=== PATIENT | male | born 1990 | race Caucasian/White ===

== ENCOUNTER 2024-03-12 06:37 | Observation (INO) | payer OTHER ==
[2024-03-12] MEDS ORDERED: KETOROLAC 15 MG/ML 1 ML VIAL IVP STA (06:44)
[2024-03-12] MEDS: HYDROmorphone 1 MG/ML 1 ML SYRINGE IVP STA (06:57)
[2024-03-12] MEDS: SODIUM CHLORIDE 0.9% 1,000 ML IV STA ×2 (07:01→07:02)
--- NOTE | 2024-03-12 07:07 | ED ---
Abdominal Pain HPI - General Chief Complaint: Abdominal Pain Stated Complaint: abd pain Time Seen by Provider: 03/12/24 06:42 Source: patient, RN notes reviewed Mode of arrival: EMS Limitations: no limitations - History of Present Illness Initial Comments: This is a 33-year-old male who presents to the emergency department as a transfer from [facility] for urology consult regarding bilateral obstructing ureteral calculi. Patient has a substantial history of kidney stones. States that he has had hematuria for the last week and this morning woke up with severe left flank pain, prompting him to go to the emergency department. They found him to have an VALENTINA, bilateral obstructing calculi, as well as a UTI. He was given 1 g of ceftriaxone in the emergency department and pain medication prior to transfer. MD Complaint: abdominal pain, flank pain - Related Data Home Medications Medication Instructions Recorded Confirmed Dextroamphetamine/Amphetamine 30 mg PO DAILY 03/12/24 03/12/24 [Dextroamphetamine/Amphetamine ER 30 mg Cap] Allergies Allergy/AdvReac Type Severity Reaction Status Date / Time codeine AdvReac Itching Verified 03/12/24 08:36 Review of Systems ROS Statement: Those systems with pertinent positive or pertinent negative responses have been documented in the HPI. ROS Other: All systems not noted in ROS Statement are negative. Past Medical History Additional Past Medical History / Comment(s): kidney stones Past Surgical History: No Surgical Hx Reported Past Psychological History: No Psychological Hx Reported Smoking Status: Current every day smoker Past Alcohol Use History: None Reported Past Drug Use History: None Reported - Past Family History Father Additional Family Medical History / Comment(s): kidney stones General Exam Limitations: no limitations General appearance: alert, in no apparent distress Head exam: Present: atraumatic, normocephalic, normal inspection Respiratory exam: Present: normal lung sounds bilaterally. Absent: respiratory distress, wheezes, rales, rhonchi, stridor Cardiovascular Exam: Present: regular rate, normal rhythm, normal heart sounds. Absent: systolic murmur, diastolic murmur, rubs, gallop, clicks GI/Abdominal exam: Present: soft, tenderness (LLQ), normal bowel sounds. Absent: distended Back exam: Present: CVA tenderness (R), CVA tenderness (L) Neurological exam: Present: alert, oriented X3, CN II-XII intact Psychiatric exam: Present: normal affect, normal mood Skin exam: Present: warm, dry, intact, normal color. Absent: rash Course Vital Signs 03/12/24 03/12/24 06:41 07:51 Temperature 97.8 F 98.3 F Pulse Rate 72 69 Respiratory 20 18 Rate Blood Pressure 127/83 129/84 O2 Sat by Pulse 97 98 Oximetry Medical Decision Making - Medical Decision Making This is a 33-year-old male who presents to the emergency department for bilateral ureteral calculi Was pt. sent in by a medical professional or institution? @ -Transfer from [facility] Did you speak to anyone other than the patient for history? @ -No Did you review nursing and triage notes? @ -Yes, and I agree, it is accurate with regards to the patient's symptoms. Were old charts reviewed? @ -Records sent with the patient from [facility]. CT scan notes a calculi in the left distal ureter with mild to moderate hydronephrosis and a calculi in the right proximal ureter with severe hydronephrosis. WBC: 15.3 Creatinine: 2.5 eGFR: 34 UA: positive nitrites Differential Diagnosis? @ -Differential Flank Pain: UTI, pyelonephritis, kidney stone, musculoskeletal, pancreatitis, cholecystitis, this is not meant to be an all-inclusive list. EKG interpreted by me (3pts min.)? @ -Not obtained X-rays interpreted by me (1pt min.)? @ -Not obtained CT interpreted by me (1pt min.)? @ -Not obtained U/S interpreted by me (1pt. min.)? @ -Not obtained What testing was considered but not performed? (CT, X-rays, U/S, labs)? Why? @ -None What meds were considered but not given? Why? @ -None Did you discuss the management of the patient with other professionals? @ -Yes, Dr. Shook, who advised keeping the patient NPO with potential for intervention later today. Lorena Renteria accepts the patient for admission to medicine. Did you reconcile home meds? @ -No Was smoking cessation discussed for >3mins.? @ -I discussed smoking cessation for greater than 3 minutes. The risk of smoking were discussed with the patient including but not limited to risks of cancer, stroke, coronary artery disease and COPD. Also discussed with patient were multiple methods of quitting smoking. Lastly we discussed the financial cost of smoking. Was critical care preformed (if so, how long)? @ -No Were there social determinants of health that impacted care today? How? (Homelessness, low income, unemployed, alcoholism, drug addiction, transportation, low edu. Level, literacy, decrease access to med. care, [facility], rehab)? @ -No Was there de-escalation of care discussed even if they declined? (Discuss DNR or withdrawal of care, Hospice)? @ -No What co-morbidities impacted this encounter? (DM, HTN, Smoking, COPD, CAD, Cancer, CVA, Hep., AIDS, mental health diagnosis, sleep apnea, morbid obesity)? @ -Kidney stones, smoking Was patient admitted / discharged? @ -Admitted. Patient transferred to our facility from [facility] for bilateral obstructing ureteral calculi with an VALENTINA and associated U TI. He was given 1 g of ceftriaxone prior to transfer. He was given an additional 1 g of ceftriaxone in our emergency department. Case discussed with urology who requested keeping the patient NPO for possible intervention later today. Repeat lab work obtained here as well demonstrating persistent but mild improvement of both leukocytosis and VALENTINA. Urinalysis still has positive nitrites. Patient admitted to medicine for bilateral obstructing calculi, VALENTINA, and UTI. Urology listed as consult. Undiagnosed new problem with uncertain prognosis? @ -None Drug Therapy requiring intensive monitoring for toxicity (Heparin, Nitro, Insulin, Cardizem)? @ -None Were any procedures done? @ -None Diagnosis/symptom? @ -Bilateral obstructing ureteral calculi, hydronephrosis, UTI, VALENTINA Acute, or Chronic, or Acute on Chronic? @ -Acute Uncomplicated (without systemic symptoms) or Complicated (systemic symptoms)? @ -Complicated Side effects of treatment? @ -None Exacerbation, Progression, or Severe Exacerbation] @ -Not applicable Poses a threat to life or bodily function? @ -Yes This case was discussed in detail with the attending ED physician, Dr. Kahn. Presentation, findings, and treatment plan discussed in detail as well. - Lab Data Result diagrams: 03/12/24 07:20 03/12/24 07:20 Lab Results 03/12/24 Range/Units 06:44 Urine Color Dark Brown Urine Appearance Clear (Clear) Urine pH 5.5 (5.0-8.0) Ur Specific [place] 1.015 (1.001-1.035) Urine Protein Negative (Negative) Urine Glucose (UA) Negative (Negative) Urine Ketones Negative (Negative) Urine Blood Trace H (Negative) Urine Nitrite Positive (Negative) Urine Bilirubin Negative (Negative) Urine Urobilinogen 2.0 (<2.0) mg/dL Ur Leukocyte Esterase Negative (Negative) Urine RBC 1 (0-5) /hpf Urine WBC 5 (0-5) /hpf Ur Squamous Epith Cells 1 (0-4) /hpf Urine Bacteria Rare H (None) /hpf Hyaline Casts 1 (0-2) /lpf Urine Mucus Occasional H (None) /hpf Disposition Clinical Impression: UTI (urinary tract infection), Bilateral ureteral calculi, VALENTINA (acute kidney injury), Hydronephrosis, Nicotine dependence Disposition: ADMITTED IP TO THIS [facility] Time of Disposition: 07:08
[2024-03-12] MEDS ORDERED: NALOXONE 0.4 MG/ML 1 ML VIAL IV PRN (07:09)
[2024-03-12] MEDS ORDERED: ACETAMINOPHEN TAB 325 MG TAB PO PRN (07:09)
[2024-03-12 07:49] LABS: Basophils # (A) 0.1 k/uL (0-0.2); Basophils % (A) 0 %; Eosinophils # (A) 0.5 k/uL (0-0.7); Eosinophils % (A) 3 %; HCT 42.4 % (39.0-53.0); HGB 13.2 gm/dL (13.0-17.5); Lymphocytes # (A) 2.2 k/uL (1.0-4.8); Lymphocytes % (A) 15 %; MCH 27.7 pg (25.0-35.0); MCHC 31.1 g/dL (31.0-37.0); MCV 88.9 fL (80.0-100.0); Mean Platelet Volume 9.1; Monocytes # (A) 0.7 k/uL (0-1.0); Monocytes % (A) 5 %; Neutrophils # (A) 11.4 k/uL (1.3-7.7); Neutrophils % (A) 76 %; Platelet Count 295 k/uL (150-450); RBC 4.77 m/uL (4.30-5.90); WBC 14.9 k/uL (3.8-10.6)
[2024-03-12] MEDS: KETOROLAC 15 MG/ML 1 ML VIAL IVP PRN (08:00)
[2024-03-12 08:01] LABS: ALT 13 U/L (4-49); AST 28 U/L (17-59); African American GFR (CKD) 49 (>60 ml/min/1.73 sqM); Albumin 4.1 g/dL (3.5-5.0); Alkaline Phosphatase 87 U/L (38-126); Anion Gap 7 mmol/L; Blood Urea Nitrogen 27 mg/dL (9-20); Calcium 8.9 mg/dL (8.4-10.2); Carbon Dioxide 25 mmol/L (22-30); Chloride 108 mmol/L (98-107); Glucose 92 mg/dL (74-99); Non-African American GFR(CKD) 42 (>60 ml/min/1.73 sqM); Potassium 4.8 mmol/L (3.5-5.1); Sodium 140 mmol/L (137-145); Total Bilirubin 0.3 mg/dL (0.2-1.3); Total Protein 6.8 g/dL (6.3-8.2)
[2024-03-12] MEDS: PANTOPRAZOLE 40 MG/10 ML VIAL IV SCH (09:40)
[2024-03-12] MEDS: HYDROmorphone 1 MG/ML 1 ML SYRINGE IVP PRN (09:40)
[2024-03-12 09:51] LABS: Appearance,Urine Clear (Clear); Bacteria,Urine Rare /hpf; Bilirubin,Urine Negative (Negative); Blood,Urine Trace (Negative); Color,Urine Dark Brown; Glucose,Urine (UA) Negative (Negative); Hyaline Casts,Urine 1 /lpf (0-2); Ketones,Urine Negative (Negative); Leukocyte Esterase,Urine Negative (Negative); Mucus,Urine Occasional /hpf; Nitrite,Urine Positive (Negative); PH, Urine 5.5 (5.0-8.0); Protein,Urine Negative (Negative); RBC,Urine 1 /hpf (0-5); Specific Gravity,Urine 1.015 (1.001-1.035); Squamous Epithelial Cell,Urine 1 /hpf (0-4); WBC,Urine 5 /hpf (0-5)
[2024-03-12] MEDS: IV FLUID CONTINUATION 1,000 ML IV ONE (12:50)
[2024-03-12] MEDS: ONDANSETRON 4 MG/2 ML VIAL IVP PRN (13:00)
--- NOTE | 2024-03-12 13:20 | P.GSCN ---
History of Present Illness Consult date: 03/12/24 Reason for Consult: Bilateral ureteral stones History of present illness: This is a 33-year-old male that presents as a transfer from [facility] with bilateral obstructing ureteral stones and acute kidney injury. Patient has extensive history of kidney stones, presented to the emergency department gross hematuria associated with bilateral flank pain worse on the left. In the ER he underwent a CT abdomen and pelvis that showed evidence of bilateral obstructing ureteral stones with hydronephrosis. Does have extensive history of kidney stones, but indicated never required any intervention is always been able to pass the stone. He also has a strong family history of kidney stones. Denies any fevers chills or dysuria. His creatinine is 2.02 on presentation, baseline is unknown, but no known history of CKD. Review of Systems - Constitutional Denies fever, Denies weight loss - EENT Ears, nose, mouth and throat: Denies dysphagia - Cardiovascular Denies chest pain, Denies shortness of breath - Respiratory Denies cough, Denies 7 - Gastrointestinal Reports as per HPI - Genitourinary Reports flank pain, Reports hematuria Past Medical History Additional Past Medical History / Comment(s): kidney stones History of Any Multi-Drug Resistant Organisms: None Reported Past Surgical History: No Surgical Hx Reported Past Anesthesia/Blood Transfusion Reactions: No Reported Reaction Past Psychological History: No Psychological Hx Reported Smoking Status: Current every day smoker Past Alcohol Use History: None Reported Past Drug Use History: None Reported - Past Family History Father Additional Family Medical History / Comment(s): kidney stones Medications and Allergies Home Medications Medication Instructions Recorded Confirmed Type Dextroamphetamine/Amphetamine 30 mg PO DAILY 03/12/24 03/12/24 History [Dextroamphetamine/Amphetamine ER 30 mg Cap] Allergies Allergy/AdvReac Type Severity Reaction Status Date / Time codeine AdvReac Itching Verified 03/12/24 08:36 Surgical - Exam Vital Signs Temp Pulse Resp BP Pulse Ox 97.8 F 72 20 127/83 97 03/12/24 06:41 03/12/24 06:41 03/12/24 06:41 03/12/24 06:41 03/12/24 06:41 - General no distress, moderate pain - Eyes normal ocular movement, no pale - ENT normal nares, normal mucosa - Respiratory normal expansion, normal respiratory effort - Abdomen Abdomen: soft, non tender - Psychiatric oriented to time, oriented to person, oriented to place Results - Labs 03/12/24 07:20 03/12/24 07:20 Abnormal Lab Results - Last 24 Hours (Table) 03/12/24 03/12/24 03/12/24 Range/Units 06:44 07:20 07:20 WBC 14.9 H (3.8-10.6) k/uL Neutrophils # 11.4 H (1.3-7.7) k/uL Chloride 108 H (98-107) mmol/L BUN 27 H (9-20) mg/dL Creatinine 2.02 H (0.66-1.25) mg/dL Urine Blood Trace H (Negative) Urine Bacteria Rare H (None) /hpf Urine Mucus Occasional H (None) /hpf Diabetes panel 03/12/24 Range/Units 07:20 Sodium 140 (137-145) mmol/L Potassium 4.8 (3.5-5.1) mmol/L Chloride 108 H (98-107) mmol/L Carbon Dioxide 25 (22-30) mmol/L BUN 27 H (9-20) mg/dL Creatinine 2.02 H (0.66-1.25) mg/dL Glucose 92 (74-99) mg/dL Calcium 8.9 (8.4-10.2) mg/dL AST 28 (17-59) U/L ALT 13 (4-49) U/L Alkaline Phosphatase 87 (38-126) U/L Total Protein 6.8 (6.3-8.2) g/dL Albumin 4.1 (3.5-5.0) g/dL Calcium panel 03/12/24 Range/Units 07:20 Calcium 8.9 (8.4-10.2) mg/dL Albumin 4.1 (3.5-5.0) g/dL Pituitary panel 03/12/24 Range/Units 07:20 Sodium 140 (137-145) mmol/L Potassium 4.8 (3.5-5.1) mmol/L Chloride 108 H (98-107) mmol/L Carbon Dioxide 25 (22-30) mmol/L BUN 27 H (9-20) mg/dL Creatinine 2.02 H (0.66-1.25) mg/dL Glucose 92 (74-99) mg/dL Calcium 8.9 (8.4-10.2) mg/dL Adrenal panel 03/12/24 Range/Units 07:20 Sodium 140 (137-145) mmol/L Potassium 4.8 (3.5-5.1) mmol/L Chloride 108 H (98-107) mmol/L Carbon Dioxide 25 (22-30) mmol/L BUN 27 H (9-20) mg/dL Creatinine 2.02 H (0.66-1.25) mg/dL Glucose 92 (74-99) mg/dL Calcium 8.9 (8.4-10.2) mg/dL Total Bilirubin 0.3 (0.2-1.3) mg/dL AST 28 (17-59) U/L ALT 13 (4-49) U/L Alkaline Phosphatase 87 (38-126) U/L Total Protein 6.8 (6.3-8.2) g/dL Albumin 4.1 (3.5-5.0) g/dL Assessment and Plan Assessment: 33-year-old male with acute kidney injury secondary to bilateral obstructing ureteral stone. Extensive history of kidney stones. Discussed with him and his mother the next that would be to proceed with bilateral stent insertion. Risk benefit and rationale of doing the surgery was discussed with him in details. Discussed he will eventually require bilateral ureteroscopy with bilateral stent removal as an outpatient -Keep n.p.o., can have diet after surgery -OR for cystoscopy and bilateral stent insertion
[2024-03-12] MEDS ORDERED: LIDOCAINE 1% INJ 10MG/ML (20 ML MDV) ONE (13:32)
[2024-03-12] MEDS ORDERED: MIDAZOLAM 2 MG/2 ML VIAL ONE (13:32)
[2024-03-12] MEDS ORDERED: SUCCINYLCHOLINE CHLORIDE 200 MG/10 ML VIAL IV ONE (13:32)
[2024-03-12] MEDS ORDERED: PROPOFOL 10 MG/ML 20 ML VIAL IV ONE (13:32)
[2024-03-12] MEDS ORDERED: ceFAZolin 1 GM/50 ML BAG (PMX) ONE (13:32)
[2024-03-12] MEDS ORDERED: fentaNYL (PF) 50 MCG/ML 2 ML AMP ONE (13:32)
[2024-03-12] MEDS: SODIUM CHLORIDE 0.9% 50 ML with ceFAZolin 2,000 MG IV ONE (13:37)
[2024-03-12] MEDS: IOHEXOL 350 MG/ML 100 ML in EMPTY BAG 1 BAG IRRIGATION ONE (14:04)
[2024-03-12] MEDS: HYDROmorphone 0.5 MG/0.5 ML SYRINGE IVP PRN (14:51)
[2024-03-12 14:53] VITALS: RESP 16
--- NOTE | 2024-03-12 15:55 | FL ---
EXAMINATION TYPE: FL urography retrograde Intraoperative/procedural fluoroscopic services were provid ed. Total fluoroscopy time is 1 minute 15 seconds with a total of 5 submitted images to PACS. Please see the operative/procedural note for further details. DAP: 5.7022 Gycm2
[2024-03-12] MEDS: HEPARIN SODIUM,PORCINE 5,000 UNIT/ML 1 ML VIAL SQ SCH (16:10)
[2024-03-12] MEDS: SODIUM CHLORIDE 0.9% 1,000 ML IV SCH (17:24)
[2024-03-12 21:42] VITALS: TEMP 98.2
--- NOTE | 2024-03-12 22:40 | P.HPIM ---
History of Present Illness H&P Date: 03/12/24 Chief Complaint: Left flank pain Patient is a 33-year-old male with a known history of renal stones was transferred from [facility] due to bilateral obstructing ureteral calculi. Patient states that he has been having hematuria for the last 1 week and then yesterday morning he woke up with severe left flank pain which made him go to ER. Patient was found to acute kidney injury and after bilateral obstructing calculi as well as urinary tract infection at [facility] and was transferred to [facility] for further evaluation by urology. Patient was given a dose of ceftriaxone prior to transfer. Patient otherwise denies any complaints of fever or chills. No nausea vomiting abdominal pain or diarrhea. No cough or sputum production. No chest pain or shortness of breath. Laboratory data showed WBC 14.9 hemoglobin 13.2 and platelets 295 sodium 140 potassium 4.8 chloride 108 bicarb is 25 BUN 27 creatinine 2.02 Review of Systems Constitutional: Patient denies any fever or chills . No generalized weakness or weight loss. Abdomen: Patient denied nausea vomiting and diarrhea and abdominal pain. Cardiovascular: Patient denies any chest pain or short of breath no palpitations. Respiratory: patient denied any cough or sputum production. No shortness of breath Neurologic: Patient denied any numbness or tingling. no headache. Musculoskeletal: Patient denies any complaints of joint swelling or deformity. Skin: Negative Psychiatric: Negative Endocrine: No heat or cold intolerance. No recent weight gain. Genitourinary: No dysuria. Patient did have hematuria and left flank pain. All other 14 point ROS negative except the above Past Medical History Additional Past Medical History / Comment(s): kidney stones History of Any Multi-Drug Resistant Organisms: None Reported Past Surgical History: No Surgical Hx Reported Past Anesthesia/Blood Transfusion Reactions: No Reported Reaction Past Psychological History: No Psychological Hx Reported Smoking Status: Current every day smoker Past Alcohol Use History: None Reported Past Drug Use History: None Reported - Past Family History Father Additional Family Medical History / Comment(s): kidney stones Medications and Allergies Home Medications Medication Instructions Recorded Confirmed Type Dextroamphetamine/Amphetamine 30 mg PO DAILY 03/12/24 03/12/24 History [Dextroamphetamine/Amphetamine ER 30 mg Cap] Allergies Allergy/AdvReac Type Severity Reaction Status Date / Time codeine AdvReac Itching Verified 03/12/24 08:36 Physical Exam Vitals: Vital Signs Temp Pulse Pulse Pulse Pulse Resp BP 03/12/24 14:48 71 16 03/12/24 14:34 97.8 F 85 12 03/12/24 12:47 97.5 F L 66 18 03/12/24 12:00 98.6 F 60 18 03/12/24 08:53 98.1 F 60 18 03/12/24 08:23 98.3 F 69 18 119/74 03/12/24 07:51 98.3 F 69 18 129/84 03/12/24 06:41 97.8 F 72 20 127/83 BP Pulse Ox 03/12/24 14:48 141/80 98 03/12/24 14:34 117/66 93 L 03/12/24 12:47 123/71 96 03/12/24 12:00 115/73 95 03/12/24 08:53 120/76 97 03/12/24 08:23 99 03/12/24 07:51 98 03/12/24 06:41 97 Intake and Output 03/12/24 03/12/24 03/12/24 06:59 14:59 22:59 Intake Total 451 Output Total 401 Balance 50 Intake: IV 451 Output: Urine 400 Estimated Blood Loss 1 Other: Voiding Method Toilet Urinal Weight 83.915 kg 83.915 kg PHYSICAL EXAMINATION: Patient is lying in the bed comfortably, no acute distress, awake alert and oriented.. HEENT: Normocephalic. Neck is supple. Pupils reactive. Nostrils clear. Oral cavity is moist. Neck reveals no JVD, carotid bruits, or thyromegaly. CHEST EXAMINATION: Trachea is central. Symmetrical expansion. Lung ferro clear to auscultation and percussion. CARDIAC: Normal S1, S2 with no gallops. No murmurs ABDOMEN: Soft. Bowel sounds normal. No organomegaly. No abdominal bruits. Extremities: reveal no edema. No clubbing or cyanosis Neurologically awake, alert, oriented x3 with well-coordinated movements. No focal deficits noted Skin: No rash or skin lesions. Psychiatric: Coperative. Nonsuicidal Musculoskeletal: No joint swelling or deformity. Normal range of motion. Results CBC & Chem 7: 03/12/24 07:20 03/12/24 07:20 Labs: Abnormal Lab Results - Last 24 Hours (Table) 03/12/24 03/12/24 03/12/24 Range/Units 06:44 07:20 07:20 WBC 14.9 H (3.8-10.6) k/uL Neutrophils # 11.4 H (1.3-7.7) k/uL Chloride 108 H (98-107) mmol/L BUN 27 H (9-20) mg/dL Creatinine 2.02 H (0.66-1.25) mg/dL Urine Blood Trace H (Negative) Urine Bacteria Rare H (None) /hpf Urine Mucus Occasional H (None) /hpf Thrombosis Risk Factor Assmnt - DVT/VTE Prophylaxis DVT/VTE Prophylaxis: Pharmacologic Prophylaxis ordered - Choose All That Apply Each Factor Represents 1 point: Minor surgery planned Other Risk Factors: No Other congenital or acquired thrombophilia - If yes, enter type in comment: No Thrombosis Risk Factor Assessment Total Risk Factor Score: 1 Thrombosis Risk Factor Assessment Level: Low Risk Assessment and Plan Assessment: Acute bilateral ureteral obstructing calculi with left flank pain on admission Acute kidney injury likely prerenal and postobstructive Acute urinary tract infection Prior history of renal stones DVT prophylaxis with heparin subcu Plan: Patient will be continued on IV hydration with normal saline and continue with antibiotics ceftriaxone and follow-up urine culture report. Continue with pain management. Patient was seen by urology and is planning for bilateral ureteroscopy and bilateral stent placement. Continue to follow closely. Time with Patient: Greater than 30
--- NOTE | 2024-03-12 23:03 | P.OP ---
Date of Procedure: 03/12/24 Preoperative Diagnosis: Bilateral ureteral stones Postoperative Diagnosis: Same Procedure(s) Performed: Cystoscopy, bilateral stent insertion, right retrograde pyelogram Implants: 6 [place] by 26 cm stent in the left ureter 4.8 [place] by 26 cm in the right ureter Anesthesia: TIA Surgeon: Quinn Shook Estimated Blood Loss (ml): 1 Pathology: none sent Condition: stable Disposition: PACU Indications for Procedure: 33-year-old male with acute kidney injury secondary to bilateral obstructing ureteral stone. Extensive history of kidney stones. Discussed with him and his mother the next that would be to proceed with bilateral stent insertion. Risk b enefit and rationale of doing the surgery was discussed with him in details. Discussed he will eventually require bilateral ureteroscopy with bilateral stent removal as an outpatient Operative Findings: Right impacted ureteral stone Description of Procedure: Patient brought to the operating room, general anesthesia was induced. He was prepped and draped in sterile fashion and placed in dorsolithotomy position. Cystoscopy fitted through the 21 [place] sheath was inserted per urethra, cystoscopy was performed showed no abnormality within the bladder. Patient had a small nonocclusive prostate. Attention was then carried to the left ureteral orifice which was intubated with a sensor wire, the wire was advanced under fluoroscopy into the location of the left kidney. Next a ureteral stent was passed over the wire, the proximal curl visualized on fluoroscopy and the distal curl was visualized using the cystoscope. A hydronephrotic drip was seen from the stent. At this time attention was carried to the right side, the visualized right ureteral orifice, at this point I advanced a wire up the right ureteral orifice, but resistance was met at the proximal ureter, there was a large radiopaque stones that was visualized at that level, I attempted to navigate the wire past the stone but resistance was met. At this time a 6 [place] open-ended catheter was advanced through the cystoscope and the right ureter orifice was intubated with the open-ended catheter, retrograde pyelogram was performed through the catheter which showed a filling defect in the distal ureter consistent with a stone, and significant narrowing of the ureter at the level of the proximal stone some contrast was seen going past the stone and into the collecting system. At this time I advanced a Glidewire through the open ended catheter, I was able to navigate a Glidewire past the proximal ureteral stone and into the kidney. At this time a 6 [place] ureteral stent was passed over the wire, but significant resistance was met at the level of the stone I was unable to advance the stent past the stone. At this time the stent was removed with the wire in place and I switched to a 4.8 [place] ureteral stent, I was able to navigate the stent past the stone and into the collecting system. This time the wire was removed with a stent in place. A hydronephrotic drip was seen from the stent. The bladder was emptied at the end of the case. Patient tolerated procedure well was taken to recovery in stable condition
[2024-03-13] MEDS: DEXTROAMPHETAMINE PO SCH (08:05)
[2024-03-13] MEDS: [UNRECOGNIZED DRUG - OTHER] PO SCH (08:05)
[2024-03-13] MEDS: AMPHETAMINE PO SCH (08:05)
--- NOTE | 2024-03-13 08:37 | P.PN ---
Subjective Progress Note Date: 03/13/24 Underwent bilateral stent insertion yesterday, indicates pain has improved. Objective - Vital Signs Vital signs: Vital Signs Temp 98.2 F 03/13/24 07:25 Pulse 57 L 03/13/24 07:25 Resp 16 03/13/24 07:25 BP 109/67 03/13/24 07:25 Pulse Ox 96 03/13/24 07:25 FiO2 Intake & Output 03/12/24 03/13/24 03/13/24 18:59 06:59 18:59 Intake Total 1381 590 Output Total 851 600 Balance 530 590 -600 Weight 83.915 kg Intake: IV 451 Intake, IV Titration 930 Amount Sodium Chloride 0.9% 1, 780 000 ml @ 130 mls/hr IV . [id number] STA Rx#:[id number] Sodium Chloride 0.9% 1, 150 000 ml @ 75 mls/hr IV . [id number] OMAR Rx#:[id number] Oral 590 Output: Urine 850 600 Estimated Blood Loss 1 Other: Voiding Method Urinal Urinal # Voids 2 - Constitutional General appearance: Present: no acute distress - Gastrointestinal General gastrointestinal: Present: soft. Absent: distended, tenderness - Labs CBC & Chem 7: 03/12/24 07:20 03/12/24 07:20 Labs: Abnormal Lab Results - Last 24 Hours (Table) 03/12/24 Range/Units 06:44 Urine Blood Trace H (Negative) Urine Bacteria Rare H (None) /hpf Urine Mucus Occasional H (None) /hpf Assessment and Plan Assessment: Status post bilateral ureteral stent insertion for bilateral obstructive ureteral stones. Recommend rechecking BMP this morning if creatinine is trending down he is okay for discharge from urology standpoint. He will be set up for an outpatient bilateral ureteroscopy with holmium laser and possible stent removals
[2024-03-13 10:46] LABS: Basophils # (A) 0.02 X 10*3/uL (0.00-0.10); Basophils % (A) 0.3 %; Eosinophils # (A) 0.15 X 10*3/uL (0.04-0.35); Eosinophils % (A) 2.1 %; HCT 33.3 % (39.6-50.0); HGB 10.4 g/dL (13.0-17.0); Lymphocytes # (A) 1.87 X 10*3/uL (0.90-5.00); Lymphocytes % (A) 26.6 %; MCHC 31.2 g/dL (32.0-37.0); MCV 89.5 FL (80.0-97.0); Mean Platelet Volume 11.4 FL (9.5-12.2); Monocytes # (A) 0.44 X 10*3/uL (0.20-1.00); Monocytes % (A) 6.3 %; NRBC Per 100 WBC 0 X 10*3/uL (0.00-0.01); Neutrophils # (A) 4.54 X 10*3/uL (1.80-7.70); Neutrophils % (A) 64.4 %; Platelet Count 266 X 10*3/uL (140-440); RBC 3.72 X 10*6/uL (4.40-5.60); RDW 15.9 % (11.5-14.5); WBC 7.04 X 10*3/uL (4.50-10.00)
[2024-03-13 10:47] LABS: BUN/Creat Ratio 14.27 Ratio (12.00-20.00); Blood Urea Nitrogen 15.7 mg/dL (9.0-27.0); Calcium 8.4 mg/dL (8.7-10.3); Carbon Dioxide 21.6 mmol/L (21.6-31.8); Chloride 107 mmol/L (96-109); Glucose 89 mg/dL (70-110); Potassium 4.5 mmol/L (3.5-5.5); Sodium 139 mmol/L (135-145)
[2024-03-13 13:26] VITALS: BP 117/74; PULSE 51
== END 2024-03-13 15:14 | disposition home or self-care (01) ==
LOC: EC 06:37 → INTOOBSV 07:15 → 5NMEDONC 07:15 → UNDODISIN 03-13 15:14
PROVIDERS: ADMIT Hospitalist; ATTEND Hospitalist
DX: N13.2 Hydronephrosis with renal and ureteral calculous obstruction (principal); N17.9 Acute kidney failure, unspecified; N39.0 Urinary tract infection, site not specified; F17.200 Nicotine dependence, unspecified, uncomplicated; Z87.442 Personal history of urinary calculi; Z88.5 Allergy status to narcotic agent; Z84.1 Family history of disorders of kidney and ureter
CPT/HCPCS: 96376 ×2; 96366; 96372 ×2; 96375 ×2; 96365; 99285; 99406; 80053; 80048; 83605; 85025 ×2; 81001; 87040; 74420; 52332; G0378 ×2; C2625 ×2; C1769 ×2; C1758; J2250; J0330; J1644 ×2; J2405; J0690 ×2; J0696; J2001; J3010; J1170 ×3; J1885 ×2; J2704; Q9967; C9113 ×2

== ENCOUNTER → 2024-03-25 | Outpatient (CLI) | payer OTHER ==
[2024-03-25 18:22] LABS: Appearance,Urine Turbid (Clear); Bilirubin,Urine Small (Negative); Blood,Urine Large (Negative); Color,Urine Red (Yellow); Ketones,Urine Negative (Negative); Nitrite,Urine Negative (Negative); Specific Gravity,Urine 1.019 (1.001-1.030); Urobilinogen,Urine 0.2 E.U./DL
[2024-03-25 18:31] LABS: Basophils # (A) 0.03 X 10*3/uL (0.00-0.10); Basophils % (A) 0.3 %; Eosinophils # (A) 0.59 X 10*3/uL (0.04-0.35); Eosinophils % (A) 6.3 %; HCT 40.9 % (39.6-50.0); Lymphocytes # (A) 3.34 X 10*3/uL (0.90-5.00); Lymphocytes % (A) 35.8 %; MCH 28.1 pg (27.0-32.0); MCHC 31.8 g/dL (32.0-37.0); MCV 88.3 FL (80.0-97.0); Mean Platelet Volume 10.7 FL (9.5-12.2); Monocytes % (A) 5.4 %; NRBC Per 100 WBC 0 X 10*3/uL (0.00-0.01); Neutrophils # (A) 4.83 X 10*3/uL (1.80-7.70); Neutrophils % (A) 51.7 %; Platelet Count 417 X 10*3/uL (140-440); RBC 4.63 X 10*6/uL (4.40-5.60); RDW 15.7 % (11.5-14.5); WBC 9.34 X 10*3/uL (4.50-10.00)
[2024-03-25 18:32] LABS: Bacteria,Urine Trace (None Seen)
[2024-03-25 19:54] LABS: Blood Urea Nitrogen 20.9 mg/dL (9.0-27.0); Carbon Dioxide 25.3 mmol/L (21.6-31.8); Chloride 101 mmol/L (96-109); Glucose 101 mg/dL (70-110); Potassium 4.5 mmol/L (3.5-5.5); Sodium 142 mmol/L (135-145)
== END | disposition home or self-care (01) ==
LOC: LABPAT 13:02
PROVIDERS: ATTEND Urology
DX: Z01.812 Encounter for preprocedural laboratory examination (principal); N20.1 Calculus of ureter
CPT/HCPCS: 80048; 81001; 85025; 87086

== ENCOUNTER 2024-03-31 07:21 | Day surgery (SDC) | payer OTHER ==
[2024-03-27 14:16] VITALS: BMI 24.4
[~2024-03-31 07:21] MED LIST: MIDAZOLAM 2 MG/2 ML VIAL IV PRN; SCOPOLAMINE 1 MG/72 HR PATCH TRANSDERM ONE
--- NOTE | 2024-03-31 07:46 | XR ---
EXAMINATION TYPE: XR KUB DATE OF EXAM: 03/31/2024 COMPARISON: None INDICATION: Preop bilateral stones TECHNIQUE: Single view abdomen frontal projection FINDINGS: There is a normal bowel gas pattern. Psoas margins are normal. No organomegaly is present. Bilateral ureteral stents are present. IMPRESSION: 1. Bilateral ureteral stents
--- NOTE | 2024-03-31 07:47 | P.HPIHPCON ---
History of Present Illness H&P Date: 03/31/24 Chief Complaint: Bilateral ureteral stones This is a 33-year-old male with history of bilateral obstructing ureteral stone status post bilateral stent insertion on March 12. Presents today for bilateral ureteroscopy with holmium laser. Discussed with him the risk of surgery which include but not limited to bleeding, infection, injury to the ureter Consent for Procedure: I have explained the operation/procedure to the patient, including the risks, benefits, side effects, alternative therapies (including not receiving the proposed treatment or service), the likelihood of the patient achieving his/her goals, and potential recuperation problems for the procedure/sedation/analgesia, as well as any blood products, if indicated. I also explained to the patient the risks, benefits and side effects of the alternatives, as well as the risks relat ed to not receiving the proposed procedure, care, treatment, or services. Past Medical History Additional Past Medical History / Comment(s): monica kidney stones, hx kidneys and states "going into shock with it a couple of years ago, was seen at [facility]" History of Any Multi-Drug Resistant Organisms: None Reported Past Surgical History: No Surgical Hx Reported Additional Past Surgical History / Comment(s): monica ureter stent insertion Past Anesthesia/Blood Transfusion Reactions: No Reported Reaction Additional Past Anesthesia/Blood Transfusion Reaction / Comment(s): no hx blood transfusion Smoking Status: Current every day smoker - Past Family History Father Additional Family Medical History / Comment(s): kidney stones Medications and Allergies Home Medications Medication Instructions Recorded Confirmed Type Dextroamphetamine/Amphetamine 30 mg PO DAILY 03/12/24 03/27/24 History [Dextroamphetamine/Amphetamine ER 30 mg Cap] Allergies Allergy/AdvReac Type Severity Reaction Status Date / Time codeine AdvReac Itching Verified 03/27/24 14:07 Surgical - Exam - General no distress, no pain - Eyes normal ocular movement, no pale - ENT normal nares, normal mucosa - Respiratory normal expansion, normal respiratory effort - Abdomen Abdomen: soft, non tender Assessment and Plan Assessment: OR for bilateral ureteroscopy, holmium laser lithotripsy, stone basketing, stent removal versus exchange
[2024-03-31] MEDS: LACTATED RINGERS 1,000 ML IV SCH (08:18)
[2024-03-31] MEDS: IV FLUID CONTINUATION 1,000 ML IV ONE (08:19)
[2024-03-31] MEDS: ONDANSETRON 4 MG/2 ML VIAL IVP ONE (08:19)
[2024-03-31] MEDS: DEXAMETHASONE SOD PHOSPHATE 4 MG/ML 1 ML VIAL IV ONE (08:19)
[2024-03-31] MEDS ORDERED: LIDOCAINE 1% INJ 10MG/ML (20 ML MDV) ONE (08:51)
[2024-03-31] MEDS ORDERED: fentaNYL (PF) 50 MCG/ML 2 ML AMP ONE (08:51)
[2024-03-31] MEDS ORDERED: SUCCINYLCHOLINE CHLORIDE 200 MG/10 ML VIAL IV ONE (08:51)
[2024-03-31] MEDS ORDERED: KETOROLAC 15 MG/ML 1 ML VIAL ONE (08:51)
[2024-03-31] MEDS ORDERED: PROPOFOL 10 MG/ML 20 ML VIAL IV ONE (08:51)
[2024-03-31] MEDS ORDERED: MIDAZOLAM 2 MG/2 ML VIAL ONE (08:51)
[2024-03-31 10:26] VITALS: TEMP 97.4
[2024-03-31] MEDS: fentaNYL (PF) 50 MCG/ML 2 ML AMP IV PRN (10:46)
--- NOTE | 2024-03-31 10:51 | P.OP ---
Date of Procedure: 03/31/24 Preoperative Diagnosis: Bilateral ureteral stone Postoperative Diagnosis: Same Procedure(s) Performed: Cystoscopy, bilateral ureteroscopy, homing laser lithotripsy, stone basketing, right stent exchange and left stent removal Implants: 6 Gambian by 26 cm stent in the right ureter left on a string Anesthesia: TIA Surgeon: Quinn Shook Estimated Blood Loss (ml): 10 Pathology: other (bilateral ureteral stone) Condition: stable Disposition: PACU Indications for Procedure: This is a 33-year-old male with history of bilateral obstructing ureteral stone status post bilateral stent insertion on March 12. Presents today for bilateral ureteroscopy with holmium laser. Discussed with him the risk of surgery which include but not limited to bleeding, infection, injury to the ureter Operative Findings: Bilateral distal ureteral stones, right-sided proximal ureteral stone Description of Procedure: Patient brought to the operating room, general anesthesia was induced. She was prepped and draped in sterile fashion placed in dorsolithotomy position. Cystoscopy fitted through the 21 Gambian sheath was inserted per urethra, cystoscopy was performed which showed no abnormality within the bladder. At this point using the stent graspers both stents were removed intact. At this time the semirigid ureteroscope was inserted per urethra and advanced up the left ureteral orifice, at this point a stone was encountered in the distal ureter. Using the holmium laser the stone was fragmented, stone fragments were removed using the stone basket. At this point the ureteroscope was advanced past the area of the stone and into the proximal ureter which showed no additional stones, pullback ureteroscopy was performed showed no injury to the ureter or any sizable ureteral stone fragments, as ureteroscope was withdrawn a sensor wire was advanced through. Next an 1113 Gambian access sheath was passed over the wire and into the proximal ureter. Next a flexible ureteroscope was inserted through the access sheath, renoscopy was performed which showed no additional stones in the kidney, on fluoroscopy there was no radiopaque densities. Pullback ureteroscopy was performed showed no injury to the ureter or any ureteral stones. At this time the semirigid ureteroscope was inserted per urethra and advanced up the right ureteral orifice, a small distal ureteral stone was seen and grasped using a stone basket. I advanced the ureteroscope all the way up to the proximal ureter which showed an additional stone, I was unable to fragment the stone using the semirigid ureteroscope given the angle of the stone, at this point a sensor wire was advanced through the ureteroscope and into the kidney, pullback ureteroscopy was performed using the ureteroscope which showed no additional stones or injury to the ureter. Next a 1113 Gambian access sheath was passed over the wire and into the proximal ureter. Next a flexible ureteroscope was inserted through the access sheath, renoscopy was performed showed a large stone in the proximal ureter. Next using the holmium laser the stone was fragmented, sizable stone fragments were removed using the stone basket. At this point the ureteroscope was advanced into the kidney, renoscopy was performed showed no renal stones or injury to the kidney. Pullback ureteroscopy was performed showed no ureteral stone or injury to the ureter, there was some edema at the site of the stone along the proximal ureter. Given this finding decision was made to proceed with a stent, as ureteroscope was withdrawn a sensor wire was advanced through. Next ureteral stent was passed over the wire, the proximal curl was visualized on fluoroscopy and the distal curl was visualized using the cystoscope. The stent was left on a string and taped to the patient penis. Patient tolerated procedure well was taken to recovery in stable condition
[2024-03-31] MEDS: LACTATED RINGERS 1,000 ML IV ONE (11:03)
[2024-03-31 12:01] VITALS: RESP 18
[2024-03-31 12:40] VITALS: BP 118/72; PULSE 80
--- NOTE | 2024-03-31 16:16 | FL ---
Fluoroscopy INDICATION: Pain FINDINGS: Fluoroscopy time: 56.3 seconds. Total dose area product (DAP) in uGy*m?, mGy*cm? (or similar): 0.41297 Images obtained: 7. IMPRESSION: 1. Documentation of fluoroscopy.
== END 2024-03-31 13:03 | disposition home or self-care (01) ==
LOC: OR 07:21
PROVIDERS: ATTEND Urology
DX: N20.1 Calculus of ureter (principal); Z96.0 Presence of urogenital implants; F90.9 Attention-deficit hyperactivity disorder, unspecified type; Z84.1 Family history of disorders of kidney and ureter; Z88.5 Allergy status to narcotic agent; F17.210 Nicotine dependence, cigarettes, uncomplicated; Z79.899 Other long term (current) drug therapy
CPT/HCPCS: 82365; 74018; 52356; 52353; C2625; C1769; J2250; J0330; J1100; J0690; J2405; J2001; J3010; J1885; J2704

== ENCOUNTER → 2024-12-21 | Outpatient (CLI) | payer OTHER ==
[2024-12-21 16:54] LABS: INR 0.9 (<1.2); Partial Thromboplastin Time 24.3 sec (22.0-30.0); Prothrombin Time 10.6 sec (10.0-12.5)
[2024-12-21 18:41] LABS: HCT 44.2 % (39.6-50.0); HGB 13.6 g/dL (13.0-17.0); MCHC 30.8 g/dL (32.0-37.0); MCV 91.1 FL (80.0-97.0); Mean Platelet Volume 11.1 FL (9.5-12.2); NRBC Per 100 WBC 0 X 10*3/uL (0.00-0.01); Platelet Count 444 X 10*3/uL (140-440); RBC 4.85 X 10*6/uL (4.40-5.60); WBC 10.49 X 10*3/uL (4.50-10.00)
[2024-12-21 18:57] LABS: Blood Urea Nitrogen 14.3 mg/dL (9.0-27.0); Carbon Dioxide 27.8 mmol/L (21.6-31.8); Chloride 105 mmol/L (96-109); Glucose 97 mg/dL (70-110); Potassium 4.4 mmol/L (3.5-5.5); Sodium 146 mmol/L (135-145)
[2024-12-21 18:58] LABS: ALT 11 U/L (10-49); AST 23 U/L (14-35); Albumin 4.6 g/dL (3.8-4.9); Albumin/Globulin Ratio 1.53 Ratio (1.60-3.17); Alkaline Phosphatase 71 U/L (41-126); Total Bilirubin <0.2 mg/dL (0.3-1.2); Total Protein 7.6 g/dL (6.2-8.2)
== END | disposition home or self-care (01) ==
LOC: LABPAT 15:45
PROVIDERS: ATTEND Orthopaedic Surgery
DX: Z01.812 Encounter for preprocedural laboratory examination (principal); Z22.322 Carrier or suspected carrier of Methicillin resistant Staphylococcus aureus; M16.11 Unilateral primary osteoarthritis, right hip
CPT/HCPCS: 80053; 85027; 85610; 85730; 86850; 86900; 86901; 87070; 93005

== ENCOUNTER 2024-12-29 06:06 | Day surgery (SDC) | payer OTHER ==
[~2024-12-29 06:06] MED LIST changes: -MIDAZOLAM 2 MG/2 ML VIAL IV PRN; -SCOPOLAMINE 1 MG/72 HR PATCH TRANSDERM ONE; +TRANEXAMIC 1,000 MG/100ML-NACL 1,000 MG in SALINE 1 100ML.BAG IVPB PRN
[2024-12-29] MEDS: ACETAMINOPHEN TAB 500 MG TAB PO PRN (06:31)
[2024-12-29] MEDS: GABAPENTIN 300 MG CAP PO PRN (06:31)
[2024-12-29] MEDS: MELOXICAM 7.5 MG TAB PO PRN (06:31)
[2024-12-29 06:55] LABS: Glucose,Whole Blood 101 mg/dL (70-110)
[2024-12-29] MEDS: ONDANSETRON 4 MG/2 ML VIAL IVP ONE (07:00)
[2024-12-29] MEDS: LACTATED RINGERS 1,000 ML IV SCH (07:00)
[2024-12-29] MEDS: DEXAMETHASONE SOD PHOSPHATE 4 MG/ML 1 ML VIAL IV ONE (07:00)
[2024-12-29] MEDS: fentaNYL (PF) 50 MCG/ML 2 ML AMP IV PRN (07:05)
[2024-12-29] MEDS: MIDAZOLAM 2 MG/2 ML VIAL IV ONE (07:05)
[2024-12-29] MEDS: IV FLUID CONTINUATION 1,000 ML IV ONE ×2 (07:12→09:25)
[2024-12-29] MEDS ORDERED: KETAMINE HCL IN 0.9 % NACL 50 MG/5 ML SYRINGE ONE (07:24)
[2024-12-29] MEDS ORDERED: MIDAZOLAM 2 MG/2 ML VIAL ONE (07:24)
[2024-12-29] MEDS ORDERED: GLYCOPYRROLATE 0.2 MG/ML 2 ML VIAL ONE (07:24)
[2024-12-29] MEDS ORDERED: PROPOFOL 10 MG/ML 20 ML VIAL IV ONE (07:24)
[2024-12-29] MEDS ORDERED: DEXAMETHASONE SOD PHOSPHATE 4 MG/ML 1 ML VIAL ONE (07:24)
[2024-12-29] MEDS ORDERED: TRANEXAMIC 1,000 MG/100ML-NACL PREMIX BAG ONE (07:24)
[2024-12-29] MEDS ORDERED: ROPIVACAINE 5 MG/ML 30 ML VIAL ONE (07:24)
[2024-12-29] MEDS ORDERED: PHENYLEPHRINE-0.9% NACL SYG 1,000 MCG/10 ML SYRINGE ONE (07:24)
--- NOTE | 2024-12-29 07:24 | P.ANPRN ---
Procedure Note - Anesthesia - Nerve Block Performed Right Jorje Single Time Out Performed: Yes ([id number]) Date of Procedure: 12/29/24 Procedure Start Time: : Procedure Stop Time: : Location of Patient: PreOp Indication: Acute Post-Operative Pain, Requested by Surgeon Sedation Type: Sedate with meaningful contact maintained Preparation: Sterile Prep Position: Supine Catheter: None Needle Types: Pajunk Needle Gauge: 21 Ultrasound used to visualize needle placement: Yes Ultrasound used to observe medication spread: Yes Injectate: 0.5% Ropivacaine (see comment for volume) (21 mL of block solution containing 20 mL of 0.5% ropivacaine mixed with 4 mg of dexamethasone.) Blood Aspirated: No Pain Paresthesia on Injection Noted: No Resistance on Injection: Normal Image Stored and Saved: Yes Events: Uneventful and Well Tolerated
[2024-12-29] MEDS: ceFAZolin 2 GM in DEXTROSE 5% IN WATER 50 ML IVPB PRN (07:30)
[2024-12-29] MEDS: ceFAZolin 1,000 MG in SODIUM CHLORIDE 0.9% 1,000 ML IRRIGATION ONE (07:30)
[2024-12-29] MEDS: ROPIVACAINE 5 MG/ML 30 ML VIAL MISCELLANE ONE ×2 (07:56→08:38)
--- NOTE | 2024-12-29 08:43 | P.OP ---
Date of Procedure: 12/29/24 Preoperative Diagnosis: Avascular necrosis right hip Postoperative Diagnosis: Avascular necrosis right hip Procedure(s) Performed: Right total hip arthroplasty with a direct anterior approach Implants: Self & Nephew Polarstem standard size 3 with a collar Self & Nephew R3, 3 hole hemispherical acetabular shell, 52 mm Self & Nephew Reflection 6.5 mm cancellus screws, 20 mm 2 Self & Nephew R3, XLPE 20 acetabular liner Self & Nephew Oxinium femoral head 36 mm, -3 All components were press-fit. The articulation is Oxinium on polyethylene. Anesthesia: spinal Surgeon: Paco Walker Reclamation Furnace Operator #1: Natividad Boone Estimated Blood Loss (ml): 200 Pathology: none sent Condition: stable Disposition: PACU Indications for Procedure: After failure of conservative treatment we discussed the surgical and nonsurgica l treatment options at length. Patient wishes to proceed with a total hip arthroplasty with a direct anterior approach. Complications specific to this procedure were discussed at length, including but not limited to infection, leg length discrepancy, dislocation, nerve injury, and fracture. Covid-19 was also discussed at length with the patient, and they are aware of the current policies and procedures. The patient was given the option of delaying surgery, but they elect to proceed knowing these risks. Patient is aware of all these complications and informed consent was obtained Operative Findings: The operative findings are consistent with avascular necrosis of the right hip with collapse of the femoral head Description of Procedure: The patient was seen and evaluated in the preoperative area and the consent was reviewed. The operative site was marked with a skin marker. The patient verified the procedure and operative site. A NICK block was placed by anesthesia in the preoperative area. The patient was then brought to the operating room and given preoperative antibiotics intravenously. 1 g of Tranexamic acid was also given intravenously. A spinal anesthetic was administered by the anesthesia department. The patient was then placed on the [place] table with the bony prominences well-padded. The hip area was then prepped with a ChloraPrep solution and draped in the usual sterile fashion. A universal timeout was then performed, which confirmed the patient's name, surgical site, ALLERGIES, and procedure being performed on the consent. Next the incision site was located at 1 cm distal and 4 cm lateral to the anterior superior iliac spine. The skin and subcutaneous tissues were sharply incised. Incision was carefully dissected down to the fascia overlying the tensor fascia donnell muscle. This fascia was then incised in line with the muscle fibers. Care was taken to stay laterally in order to avoid injuring the lateral femoral cutaneous nerve. Next, using blunt finger dissection, the tensor fascia donnell muscle was dissected off its investing fascia. The muscle was then carefully retracted laterally with a cobra retractor over the lateral neck of the femur. Next, the circumflex vessels were identified and cauterized using the Aquamantis device. The anterior hip capsule was then exposed. The capsule was then opened and an inverted T fashion. The retractors were then placed intracapsularly. The retractors were maintained intracapsular throughout the procedure. The proximal femur was then visualized. Fluoroscopic x-rays were then taken in order to evaluate the preoperative leg lengths. A small amount of traction was placed on the leg. The femoral neck was then osteotomized at the appropriate level above the lesser trochanter. A small wedge of bone was then removed from the remaining femoral head. Next, using a corkscrew the femoral head was removed from the acetabulum. On gross visual inspection, the femoral head had significant changes secondary to avascular necrosis with collapse of the femoral head. The femoral head was then measured. Attention was then turned to the acetabulum. The acetabulum was exposed and any remaining labrum was excised. Sequential reaming of the acetabulum was performed using fluoroscopic guidance until there was a good bed of bleeding cancellus bone. When the appropriate size was reached, a trial was then placed. The position and fit of the trial was checked with fluoroscopy. The trial was then removed. Then, using fluoroscopic guidance, the final implant was impacted at 20 of anteversion and 40 of abduction, and fully seated in the acetabulum. 2 screws were then placed in the acetabulum. Again fluoroscopy was used to check position of the screws. Next, the liner was then impacted, with a 20 elevated liner located in the anterior superior quadrant. Component locking was confirmed. Attention was then directed to the femur. With the aid of the [place] table, the femur was externally rotated to approximately 130, extended, and adducted under the opposite leg. A side hook was then placed under the proximal femur, and the side hook elevator was used to elevate the proximal femur while releasing the capsule. Retractors were then placed. A capsular release was performed, as well as a release of the conjoined tendon, which afforded excellent visualization of the proximal femur. Next, a box osteotome was used to lateralize the proximal femur. A hand button splitter was then used to locate the femoral canal. Sequential broaching was then performed with appropriate size which afforded excellent fixation in the proximal femur. A trial was then placed with appropriate head and neck, and the hip was gently reduced with the aid of the [place] table. Fluoroscopy was then used to check position of the components, as well as to evaluate the leg lengths and offset. The leg lengths and offset were measured as closely as possible to ensure stability of the hip. The hip was then gently dislocated and the trials were then removed. Final implants were then impacted and the hip was again reduced. Final fluoroscopic x-rays confirmed that the components were in anatomic position. The leg lengths and offset were measured and were found to coincide with the trial measurements. The hip was also taken through range of motion, and found to be stable. The hip was then copiously irrigated with antibiotic solution with pulsatile lavage. The hip was then irrigated with Irrisept solution. The soft tissues were then injected with a ropivacaine solution. A second dose of 1 g of Tranexamic acid was also given intravenously. The fascia was then closed with 2-0 strata fix suture. The subcutaneous tissue was closed with 3-0 Vicryl. The subcuticular tissue was closed with 3-0 moncryl suture. The skin was then closed with Exofin skin glue. After the glue and dried, and Optifoam silver impregnated dressing was applied. The patient was then transferred to the recovery room in stable condition. The licensed physical therapist assistant KEVIN Fong was required due to the complexity of surgery, and the need for skilled surgical aide for positioning, draping, exposure, retraction, and closure of the wound.
--- NOTE | 2024-12-29 08:58 | FL ---
EXAMINATION TYPE: FL guidance operating room, XR Hip Limited RT DATE OF EXAM: 12/29/2024 CLINICAL INDICATION: Male, 34 years old with history of CRISTA RIGHT IN OR, right hip pain and osteoarth ritis. TECHNIQUE: Fluoroscopy. COMPARISON: None. FINDINGS: Fluoroscopic guidance was provided during right hip replacement procedure performed by Dr. Walker. A total of 53.8 seconds of fluoroscopic time was utilized during the procedure and 3 spot images was acquired. Intraoperative images show evidence of avascular necrosis in the right hip with eventual total hip replacement. TOTAL DAP = 2.0752 Gycm2. IMPRESSION: As Above. [facility], , 12/29/2024 8:56 AM
[2024-12-29] MEDS ORDERED: HYDROmorphone 1 MG/ML 1 ML SYRINGE IVP PRN (09:10)
[2024-12-29] MEDS ORDERED: MAGNESIUM HYDROXIDE 2,400 MG/30 ML CUP PO PRN (09:10)
[2024-12-29] MEDS ORDERED: HYDROmorphone 0.5 MG/0.5 ML SYRINGE IVP PRN (09:10)
[2024-12-29] MEDS ORDERED: ONDANSETRON 4 MG/2 ML VIAL IVP PRN (09:10)
[2024-12-29] MEDS ORDERED: NALOXONE 0.4 MG/ML 1 ML VIAL IV PRN (09:10)
[2024-12-29] MEDS: HYDROmorphone 0.5 MG/0.5 ML SYRINGE IVP PRN ×2 (09:59→10:05)
--- NOTE | 2024-12-29 10:08 | XR ---
EXAMINATION TYPE: XR Hip Limited RT DATE OF EXAM: 12/29/2024 10:00 AM COMPARISON: None. CLINICAL INDICATION: Male, 34 years old with history of Status post hip surgery, assess surgical alig nmagustin, pain TECHNIQUE: Single AP portable view of right hip is obtained immediately postoperatively. FINDINGS: Metallic hardware from right hip arthroplasty is seen and appears satisfactory in alignmen t and position. There is evidence of recent surgery with subcutaneous gas noted surrounding prosthes is. IMPRESSION: Metallic hardware from right hip arthroplasty is satisfactory in position. [facility], , 12/29/2024 10:06 AM
[2024-12-29] MEDS: LORazepam 1 MG/0.5 ML VIAL IV STA (10:51)
[2024-12-29] MEDS: hydrOXYzine pamoate 25 MG CAP PO PRN (11:39)
[2024-12-29] MEDS: HYDROcodone/APAP 7.5-325MG 1 EACH TAB PO PRN (11:39)
[2024-12-29] MEDS: SODIUM CHLORIDE 0.9% 1,000 ML IV SCH (12:58)
[2024-12-29] MEDS: AMPHETAMINE PO SCH (14:51)
[2024-12-29] MEDS: [UNRECOGNIZED DRUG - OTHER] PO SCH (14:51)
[2024-12-29] MEDS: DEXTROAMPHETAMINE PO SCH (14:51)
[2024-12-29 15:49] LABS: Basophils # (A) 0.04 10*3/uL (0.00-0.10); Basophils % (A) 0.2 %; HCT 35.6 % (39.6-50.0); HGB 11.9 g/dL (13.0-17.0); Lymphocytes # (A) 0.78 10*3/uL (0.90-5.00); Lymphocytes % (A) 4.6 %; MCH 29.4 pg (27.0-32.0); MCHC 33.4 g/dL (32.0-37.0); MCV 87.9 fL (80.0-97.0); Mean Platelet Volume 10.6 fL (9.5-12.2); Monocytes # (A) 0.63 10*3/uL (0.20-1.00); Monocytes % (A) 3.7 %; Neutrophils # (A) 15.56 10*3/uL (1.80-7.70); Neutrophils % (A) 91.1 %; Platelet Count 380 10*3/uL (140-440); RBC 4.05 10*6/uL (4.40-5.60); WBC 17.08 10*3/uL (4.50-10.00)
[2024-12-29 16:09] LABS: ALT 14 U/L (4-49); AST 27 U/L (17-59); African American GFR (CKD) >90 (>60 ml/min/1.73 sqM); Albumin 3.7 g/dL (3.5-5.0); Albumin/Globulin Ratio 1.4; Alkaline Phosphatase 57 U/L (38-126); Anion Gap 8 mmol/L; Blood Urea Nitrogen 21 mg/dL (9-20); Calcium 9.3 mg/dL (8.4-10.2); Carbon Dioxide 27 mmol/L (22-30); Chloride 101 mmol/L (98-107); Globulin 2.6 g/dL; Glucose 117 mg/dL (74-99); Non-African American GFR(CKD) >90 (>60 ml/min/1.73 sqM); Potassium 4.8 mmol/L (3.5-5.1); Sodium 136 mmol/L (137-145); Total Bilirubin 0.3 mg/dL (0.2-1.3); Total Protein 6.3 g/dL (6.3-8.2)
[2024-12-29] MEDS: PANTOPRAZOLE 40 MG TABLET PO SCH (16:28)
[2024-12-29] MEDS: ceFAZolin 2 GM in DEXTROSE 5% IN WATER 50 ML IVPB SCH (17:00)
[2024-12-29] MEDS: LORazepam 1 MG/0.5 ML VIAL IV PRN (18:22)
[2024-12-29] MEDS: SENNOSIDES-DOCUSATE SODIUM 1 EACH TAB PO SCH (19:57)
[2024-12-29] MEDS: HYDROmorphone 2 MG/ML 1 ML SYRINGE IVP PRN (19:57)
[2024-12-29] MEDS: clonazePAM 0.5 MG TAB PO SCH (19:57)
[2024-12-29] MEDS: ASPIRIN 325 MG TAB PO SCH (20:02)
--- NOTE | 2024-12-29 21:32 | CONS ---
CONSULTATION REASON FOR CONSULTATION: Advice regarding anxiety, other medical issues, requested by Orthopedics. HISTORY OF PRESENT ILLNESS: This is a 34-year-old gentleman with a past medical history of multiple medical problems including kidney stones, history of anxiety, history of vaping, history of medical marijuana, who underwent a right hip arthroplasty for avascular necrosis. The patient was extremely anxious and agitated. Subsequently after Dilaudid, the patient felt much better. Currently, the patient is sedated, unable to get a detailed history. Most of the history taken by discussion with staff, discussion with the family at the bedside and review of the chart. PAST MEDICAL HISTORY: Reviewed and include nephrolithiasis, right hip pain, DJD, avascular necrosis and vaping. Rest of the history and rest of the chart is also reviewed. HOME MEDICATIONS: Reviewed and include Klonopin. Dose and rest of medications reviewed. ALLERGIES: Codeine. FAMILY HISTORY: History of kidney stones. SOCIAL HISTORY: History of vaping, THC. REVIEW OF SYSTEMS: Fourteen-point review of systems negative except as mentioned earlier. PHYSICAL EXAMINATION: VITAL SIGNS: Pulse is 75, blood pressure 97/60, respirations 15. HEENT: Conjunctivae normal. NECK: No JVD. CARDIOVASCULAR: S1, S2. RESPIRATIONS: Breath sounds diminished at the bases. ABDOMEN: Soft, nontender. LEGS: Status post surgery. NERVOUS SYSTEM: Nonfocal. LABORATORY DATA: Glucose 101. ASSESSMENT: 1. Status post right total hip arthroplasty for avascular necrosis. 2. Severe anxiety, rule out withdrawal. 3. History of nephrolithiasis. 4. History of cystoscopy, lithotripsy. 5. Anxiety. 6. History of vaping. 7. History of THC. RECOMMENDATIONS: This is a 34-year-old gentleman, who presented with multiple complex medical issues. We will monitor the patient closely. I have recommended baseline labs and urine drug screen. Otherwise, I would recommend Ativan p.r.n. Resume the home medications. We will follow. DVT prophylaxis. Continue the IV fluids. We will follow the patient closely with you. BARBARA / CHUY: [id number] /
[2024-12-29] MEDS: KETOROLAC 15 MG/ML 1 ML VIAL IVP PRN (22:13)
[2024-12-30] MEDS: HYDROcodone/APAP 7.5-325MG 1 EACH TAB PO PRN (01:57)
[2024-12-30 08:18] LABS: Basophils # (A) 0.02 X 10*3/uL (0.00-0.10); Basophils % (A) 0.2 %; Eosinophils # (A) 0.07 X 10*3/uL (0.04-0.35); Eosinophils % (A) 0.6 %; HCT 32.2 % (39.6-50.0); HGB 10.3 g/dL (13.0-17.0); Lymphocytes # (A) 2.21 X 10*3/uL (0.90-5.00); Lymphocytes % (A) 17.8 %; MCH 28.7 pg (27.0-32.0); MCV 89.7 FL (80.0-97.0); Mean Platelet Volume 11.7 FL (9.5-12.2); Monocytes % (A) 10.5 %; NRBC Per 100 WBC 0 X 10*3/uL (0.00-0.01); Neutrophils # (A) 8.73 X 10*3/uL (1.80-7.70); Neutrophils % (A) 70.4 %; Platelet Count 301 X 10*3/uL (140-440); RBC 3.59 X 10*6/uL (4.40-5.60); RDW 14.2 % (11.5-14.5); WBC 12.39 X 10*3/uL (4.50-10.00)
[2024-12-30] MEDS ORDERED: MELOXICAM 7.5 MG TAB PO SCH (09:00)
--- NOTE | 2024-12-30 10:27 | P.PN ---
Subjective Progress Note Date: 12/30/24 This is a 34-year-old male who is status post right total hip arthroplasty. This is postoperative day #1 and patient is seen and evaluated at bedside today. Patient states that he has been in a lot of pain. Patient states that he recently stopped going to the methadone clinic a few days ago. Patient states that he was able to walk and work with physical therapy today. Objective - Vital Signs Vital signs: Vital Signs Temp 98.7 F 12/30/24 07:23 Pulse 77 12/30/24 07:23 Resp 15 12/30/24 07:23 BP 107/63 12/30/24 07:23 Pulse Ox 94 L 12/30/24 07:23 FiO2 Intake & Output 12/29/24 12/30/24 12/30/24 18:59 06:59 18:59 Intake Total 1401 1000 Output Total 200 2000 Balance 1201 -1000 Weight 82.8 kg Intake: IV 1401 Oral 1000 Output: Urine 2000 Estimated Blood Loss 200 Other: # Voids 1 - Exam Vital signs are stable. Patient is in no acute distress and is alert and oriented 3. Calf is soft and nontender to palpation. Dressing is clean, dry, and intact. Patient has full foot and ankle motion without pain or difficulty. Sensation intact. Neurovascular status and circulatory status are intact. - Labs CBC & Chem 7: 12/30/24 03:20 12/29/24 15:36 Labs: Abnormal Lab Results - Last 24 Hours (Table) 12/29/24 12/29/24 12/30/24 Range/Units 15:36 15:36 03:20 WBC 17.08 H 12.39 H (4.50-10.00) 10*3/uL RBC 4.05 L 3.59 L (4.40-5.60) 10*6/uL Hgb 11.9 L 10.3 L (13.0-17.0) g/dL Hct 35.6 L 32.2 L (39.6-50.0) % Immature Gran # 0.07 H 0.06 H (0.00-0.04) 10*3/uL Neutrophils # 15.56 H 8.73 H (1.80-7.70) 10*3/uL Lymphocytes # 0.78 L (0.90-5.00) 10*3/uL Monocytes # 1.30 H (0.20-1.00) X 10*3/uL Eosinophils # 0.00 L (0.04-0.35) 10*3/uL Sodium 136 L (137-145) mmol/L BUN 21 H (9-20) mg/dL Glucose 117 H (74-99) mg/dL Assessment and Plan (1) Avascular necrosis of bone of right hip Current Visit: Yes Status: Acute Code(s): M87.051 - IDIOPATHIC ASEPTIC NECROSIS OF RIGHT FEMUR SNOMED Code(s): 262476649 (2) S/P total hip arthroplasty Current Visit: Yes Status: Acute Code(s): Z96.649 - PRESENCE OF UNSPECIFIED ARTIFICIAL HIP JOINT SNOMED Code(s): 039129343064 Plan: Continue routine postop care and pain control. Continue anticoagulation with aspirin. Weightbearing as tolerated with a walker. Leave dressing in place for 7 days. Appreciate input from internal medicine and pain management. Anticipate discharge home in the next 24-48 hours. Patient has declined home care.
[2024-12-31 02:03] VITALS: RESP 16
--- NOTE | 2024-12-31 03:41 | PN ---
PROGRESS NOTE DATE OF SERVICE: 12/30/2024 SUBJECTIVE: This is a 34-year-old gentleman who was admitted after hip surgery. Receiving methadone on a daily basis for the last several years. No chest pain. No palpitations. The patient is anxious. PHYSICAL EXAMINATION: VITAL SIGNS: Pulse 75, blood pressure 90/50, respirations 15. CHEST: Clear to auscultation. CARDIOVASCULAR: S1, S2. ABDOMEN: Soft. LEGS: Status post surgery. LABORATORY DATA: WBC 12.3. ASSESSMENT: 1. Status post right hip arthroplasty for avascular necrosis. 2. Severe anxiety, rule out withdrawal. 3. On outpatient daily methadone. 4. Elevated WBC, possibly reactive. 5. Mild hyponatremia. 6. History of nephrolithiasis. 7. Cystoscopy, lithotripsy. 8. Anxiety. 9. History of vaping. 10.History of THC. RECOMMENDATIONS AND DISCUSSION: Recommended to continue current management, continue with symptomatic treatment. Otherwise, incentive spirometry. Recommend UA with micro to rule out the possibility of UTI. Closely monitor. Further recommendations to follow. Monitor for a withdrawals or anxiety. MMODL / IJN: [id number] /
--- NOTE | 2024-12-31 10:28 | P.PN ---
Subjective Progress Note Date: 12/31/24 This is a 34-year-old male who is status post right total hip arthroplasty. This is postoperative day #2 and patient is seen and evaluated at bedside today. Patient complains of pain and feeling sick this morning. Objective - Vital Signs Vital signs: Vital Signs Temp 98.8 F 12/31/24 07:08 Pulse 81 12/31/24 07:08 Resp 16 12/31/24 07:08 BP 119/75 12/31/24 07:08 Pulse Ox 98 12/31/24 07:08 FiO2 Intake & Output 12/30/24 12/31/24 12/31/24 18:59 06:59 18:59 Output Total 650 Balance -650 Output: Urine 650 Other: Voiding Method Toilet Urinal # Voids 400 - Exam Vital signs are stable. Patient is in no acute distress and is alert and oriented 3. Calf is soft and nontender to palpation. Dressing is clean, dry, and intact. Patient has full foot and ankle motion without pain or difficulty. Sensation intact. Neurovascular status and circulatory status are intact. - Labs CBC & Chem 7: 12/30/24 03:20 12/29/24 15:36 Assessment and Plan (1) Avascular necrosis of bone of right hip Current Visit: Yes Status: Acute Code(s): M87.051 - IDIOPATHIC ASEPTIC NECROSIS OF RIGHT FEMUR SNOMED Code(s): 850916085 (2) S/P total hip arthroplasty Current Visit: Yes Status: Acute Code(s): Z96.649 - PRESENCE OF UNSPECIFIED ARTIFICIAL HIP JOINT SNOMED Code(s): 352072466847 Plan: Continue routine postop care and pain control. Continue anticoagulation with aspirin. Weightbearing as tolerated with a walker. Leave dressing in place for 7 days. Appreciate input from internal medicine.. Pain management consult pending. Anticipate discharge home once cleared medically.
[2024-12-31 11:09] VITALS: PULSE 71
--- NOTE | 2024-12-31 13:33 | P.DS ---
Providers Expected date of discharge: 12/31/24 Attending physician: Paco Walker Consults: 12/29/24 09:10 Consult Physician Routine Consulting Provider: Edilberto Wolfe Consult Reason/Comments: medical management Do you want consulting provider notified?: Yes Primary care physician: Maksim Gabriel - Discharge Diagnosis(es) (1) Avascular necrosis of bone of right hip Current Visit: Yes Status: Acute (2) S/P total hip arthroplasty Current Visit: Yes Status: Acute Hospital Course: This is a 34-year-old male with known history of degenerative arthritis of the right hip. The patient presented for evaluation as an outpatient. After discussion and consideration patient elects to proceed with total hip arthroplasty. The patient is seen preoperatively by Dr. Walker and medically cleared for surgery by their primary care physician. Patient is admitted to [facility] on 12/29/2024 for total hip arthroplasty. The procedure is performed without complication or sequelae. The patient is doing well postoperatively. Labs and vital signs are stable on day of discharge. Patient has a contract with a methadone clinic and will continue treatment with them postoperatively. On day of discharge patient's hip incision is healing well. There is minimal erythema. There is no drainage noted at this time. There is minimal soft tissue swelling to the hip and thigh. Patient has full foot and ankle motion without difficulty or pain. Calf is soft and nontender to palpation. Neurovascular status to the right lower extremity is intact. Patient is discharged home in good condition. Avascular necrosis right hip please see med rec for accurate list of home medications. Plan - Discharge Summary Discharge Rx Participant: No New Discharge Prescriptions: New Aspirin 325 mg PO BID #60 tab HYDROcodone/APAP 7.5-325MG [[place] 7.5-325] 1 - 2 tab PO Q6H PRN #32 tab PRN Reason: Pain Sennosides [Senokot] 2 tab PO DAILY PRN #60 tablet PRN Reason: Constipation Ketorolac [Toradol] 10 mg PO Q6HR #12 tab No Action clonazePAM [KlonoPIN] 0.5 mg PO HS Dextroamphetamine/Amphetamine [Dextroamphetamine/Amphetamine ER 30 mg Cap] 30 mg PO DAILY Discharge Medication List Dextroamphetamine/Amphetamine [Dextroamphetamine/Amphetamine ER 30 mg Cap] 30 mg PO DAILY 03/12/24 [History] clonazePAM [KlonoPIN] 0.5 mg PO HS 12/28/24 [History] Aspirin 325 mg PO BID #60 tab 12/29/24 [Rx] Ketorolac [Toradol] 10 mg PO Q6HR #12 tab 12/29/24 [Rx] Sennosides [Senokot] 2 tab PO DAILY PRN #60 tablet 12/29/24 [Rx] HYDROcodone/APAP 7.5-325MG [[place] 7.5-325] 1 - 2 tab PO Q6H PRN #32 tab 12/31/24 [Rx] Follow up Appointment(s)/Referral(s): Paco Walker DO [Doctor of Osteopathic Medicine] - 01/08/25 2:30 pm (With Bailee) Patient Instructions/Handouts: Joint Replacement Surgery (DC) Activity/Diet/Wound Care/Special Instructions: Weightbearing as tolerated with walker. Leave dressing intact. Dressing may be removed by home care nurse or by patient in 7 days. Then change dressing twice daily until follow up. May shower with initial dressing intact and after removal. If dressing become saturated, please remove. Please take aspirin 325mg twice daily for 30 days to prevent blood clots. Recommend use of compression stockings daily until follow up to help prevent swelling and blood clots. May remove at night before sleeping. Please follow-up with [facility] in 2 weeks and call with any questions or concerns, . Discharge Disposition: HOME WITH HOME HEALTH SERVICES
[2024-12-31 14:22] VITALS: BP 125/72; TEMP 98.6
== END 2024-12-31 16:22 | disposition home or self-care (01) ==
LOC: OR 06:06 → 4SSUR 08:57 → OR 12-31 16:22
PROVIDERS: ATTEND Orthopaedic Surgery
DX: M87.351 Other secondary osteonecrosis, right femur (principal); M16.11 Unilateral primary osteoarthritis, right hip; G89.18 Other acute postprocedural pain; F41.9 Anxiety disorder, unspecified; E87.1 Hypo-osmolality and hyponatremia; Z79.01 Long term (current) use of anticoagulants; Z87.442 Personal history of urinary calculi; Z88.5 Allergy status to narcotic agent; Z79.899 Other long term (current) drug therapy
CPT/HCPCS: 27130; 97161; 97165; 64473; 80053; 85025 ×2; 73501; C1776; J2250; J2060 ×2; J1171 ×4; J1100; J0690 ×3; J2405; J3010; J2795; J1885 ×2

== ENCOUNTER 2025-01-11 01:16 | Observation (INO) | payer OTHER ==
--- NOTE | 2025-01-11 01:38 | ED ---
General Adult HPI - General Source: patient, family, EMS, RN notes reviewed Mode of arrival: EMS Limitations: altered mental status - History of Present Illness Onset/Timin -: days(s) Associated Symptoms: malaise, weakness <Valdemar De Souza - Last Filed: 01/11/25 04:12> <Maria Esther Courtney - Last Filed: 01/11/25 21:51> - General Chief complaint: Psychiatric Symptoms Stated complaint: drug use Time Seen by Provider: 01/11/25 01:31 - History of Present Illness Initial comments: This is a 34-year-old male presenting via EMS for weakness x 7 days. Patient states he received a right total hip replacement on 12/29/2024, being kicked out of his methadone clinic afterwards. Patient states he is feeling much more weak than usual with associated chills/tremors. Patient states he is "withdrawing" noting last use of heroin 10 hours ago. Patient's significant others would later arrive stating they found patient in an altered state, which they have seen before, but usually not severe. Family unsure definitively of when patient last used heroin. Family states they would like to ensure patient is sent to a rehab clinic. (Valdemar De Souza) - Related Data Home Medications Medication Instructions Recorded Confirmed Dextroamphetamine/Amphetamine 30 mg PO DAILY 03/12/24 01/11/25 [Dextroamphetamine/Amphetamine ER 30 mg Cap] clonazePAM [KlonoPIN] 0.5 mg PO HS 12/28/24 01/11/25 traZODone HCL 100 mg PO HS PRN 01/11/25 01/11/25 Previous Rx's Medication Instructions Recorded Aspirin 325 mg PO BID #60 tab 12/29/24 Ketorolac [Toradol] 10 mg PO Q6HR #12 tab 12/29/24 Sennosides [Senokot] 2 tab PO DAILY PRN #60 tablet 12/29/24 HYDROcodone/APAP 7.5-325MG [[place] 1 - 2 tab PO Q6H PRN #32 tab 12/31/24 7.5-325] Allergies Allergy/AdvReac Type Severity Reaction Status Date / Time codeine AdvReac Itching Verified 01/11/25 08:17 Review of Systems ROS Other: All systems not noted in ROS Statement are negative. <Valdemar De Souza - Last Filed: 01/11/25 04:12> ROS Other: All systems not noted in ROS Statement are negative. <Maria Esther Courtney - Last Filed: 01/11/25 21:51> ROS Statement: Those systems with pertinent positive or pertinent negative responses have been documented in the HPI. Past Medical History Additional Past Medical History / Comment(s): kidney stones History of Any Multi-Drug Resistant Organisms: None Reported Past Surgical History: No Surgical Hx Reported Past Anesthesia/Blood Transfusion Reactions: No Reported Reaction Past Psychological History: No Psychological Hx Reported Smoking Status: Current every day smoker Past Drug Use History: None Reported - Past Family History Father Additional Family Medical History / Comment(s): kidney stones <Valdemar De Souza - Last Filed: 01/11/25 04:12> General Exam General appearance: in no apparent distress, lethargic Head exam: Present: atraumatic, normocephalic, normal inspection Eye exam: Present: normal appearance, PERRL (Pupils 3 mm), EOMI. Absent: scleral icterus, conjunctival injection, periorbital swelling Pupils: Present: normal accommodation. Absent: unequal ENT exam: Present: normal exam, mucous membranes moist Neck exam: Present: normal inspection. Absent: tenderness, meningismus, lymphadenopathy Respiratory exam: Present: normal lung sounds bilaterally. Absent: respiratory distress, wheezes, rales, rhonchi, stridor, accessory muscle use, decreased breath sounds, prolonged expiratory Cardiovascular Exam: Present: normal rhythm, bradycardia, normal heart sounds. Absent: systolic murmur, diastolic murmur, rubs, gallop, clicks GI/Abdominal exam: Present: soft, normal bowel sounds. Absent: distended, tenderness, guarding, rebound, rigid Extremities exam: Present: normal inspection, full ROM, normal capillary refill, other (Right hip surgical site appears to be healing well with no indication of infection, surrounding erythema, discharge. Bilateral radial and posterior tibialis pulses +2). Absent: tenderness, pedal edema, joint swelling, calf tenderness Back exam: Present: normal inspection Neurological exam: Present: altered (GCS 14, alert to verbal), oriented X3, CN II-XII intact Psychiatric exam: Present: depressed, flat affect Skin exam: Present: warm, dry, intact, normal color. Absent: rash <Valdemar De Souza - Last Filed: 01/11/25 04:12> Course Vital Signs 01/11/25 01/11/25 01/11/25 01:18 03:56 04:43 Temperature 97.9 F 97.8 F Pulse Rate 57 L 42 L 39 L Respiratory 18 16 16 Rate Blood Pressure 86/49 97/65 110/67 O2 Sat by Pulse 97 97 99 Oximetry 01/11/25 01/11/25 01/11/25 05:07 06:21 07:22 Temperature 97 F L Pulse Rate 41 L 46 L 56 L Respiratory 18 20 20 Rate Blood Pressure 102/74 97/58 105/53 O2 Sat by Pulse 99 98 96 Oximetry 01/11/25 01/11/25 01/11/25 08:00 09:04 11:00 Temperature Pulse Rate 80 71 Respiratory 36 H 20 18 Rate Blood Pressure 116/86 119/80 O2 Sat by Pulse 96 96 Oximetry 01/11/25 14:00 Temperature Pulse Rate 91 Respiratory 18 Rate Blood Pressure 122/74 O2 Sat by Pulse 97 Oximetry Medical Decision Making - Lab Data Result diagrams: 01/11/25 01:49 01/11/25 01:49 <Valdemar De Souza - Last Filed: 01/11/25 04:12> - Lab Data Result diagrams: 01/11/25 01:49 01/11/25 01:49 <Maria Esther Courtney - Last Filed: 01/11/25 21:51> - Medical Decision Making Was pt. sent in by a medical professional or institution (, PA, MOTOR EQUIPMENT COMMANDING OFFICER, urgent care, hospital, or long-term...) When possible be specific @ -No Did you speak to anyone other than the patient for history (EMS, parent, family, police, friend...)? What history was obtained from this source @ -Patient's family provided majority of HPI Did you review nursing and triage notes (agree or disagree)? Why? @ -I reviewed and agree with nursing and triage notes Were old charts reviewed (outside hosp., previous admission, EMS record, old EKG, old radiological studies, urgent care reports/EKG's, long-term records)? Report findings @ -Surgery notes from 12/29/2024 reviewed indicating patient having a right total hip replacement Differential Diagnosis (chest pain, altered mental status, abdominal pain women, abdominal pain men, vaginal bleeding, weakness, fever, dyspnea, syncope, headache, dizziness, GI bleed, back pain, seizure, CVA, palpatations, mental health, musculoskeletal)? @ -Differential Altered Mental Status: Hypoglycemia, DKA, hypercapnia, ETOH, overdose, CO poisoning, trauma, myxedema coma, HTN encephalopathy, infection, encephalitis, psychosis, intercranial hemorrhage, hepatic encephalopathy, meningitis, CVA, this is not meant to be an all-inclusive list EKG interpreted by me (3pts min.). @ -Sinus bradycardia without ST deviation or T wave inversion. Ventricular rate 42 bpm, JAZMYN 127 ms, QRS 128 ms, QTc 413 ms. X-rays interpreted by me (1pt min.). @ -CXR shows no acute cardiopulmonary process CT interpreted by me (1pt min.). @ -Brain CT shows no acute intracranial process. U/S interpreted by me (1pt. min.). @ -None done What testing was considered but not performed or refused? (CT, X-rays, U/S, labs)? Why? @ -None What meds were considered but not given or refused? Why? @ -None Did you discuss the management of the patient with other professionals (professionals i.e. , PA, MOTOR EQUIPMENT COMMANDING OFFICER, lab, RT, psych nurse, director social, manager it training, teacher, eeo officer, business case analyst)? Give summary @ - Spoke to Dr. Cooper from [facility] who agreed to obs admission for patient due to altered level of consciousness, hypotension and bradycardia. Was smoking cessation discussed for >3mins.? @ -No Was critical care preformed (if so, how long)? @ -No Were there social determinants of health that impacted care today? How? (Homelessness, low income, unemployed, alcoholism, drug addiction, transportation, low edu. Level, literacy, decrease access to med. care, shelter, rehab)? @ -Opioid drug addiction Was there de-escalation of care discussed even if they declined (Discuss DNR or withdrawal of care, Hospice)? DNR status @ -No What co-morbidities impacted this encounter? (DM, HTN, Smoking, COPD, CAD, Can cer, CVA, ARF, Chemo, Hep., AIDS, mental health diagnosis, sleep apnea, morbid obesity)? @ -None Was patient admitted / discharged? Hospital course, mention meds given and route, prescriptions, significant lab abnormalities, going to OR and other pertinent info. @ -Initial lab work shows mild leukocytosis 11.19, anemia 10.6, hyperglycemia 132 with normal lactic acid, serum alcohol and negative Cepheid test. UA, tox screen and other lab results still pending. CXR shows no acute cardiopulmonary process. Brain CT shows no acute intracranial process. Patient provided IV normal saline and started on broad-spectrum antibiotics, IV cefepime and vancomycin. Ongoing IV fluid resuscitation ongoing during patient's time in ER. Spoke to Dr. Cooper from [facility] who agreed to obs admission for patient due to altered level of consciousness, hypotension and bradycardia. Discussed patient with Dr. Courtney. Undiagnosed new problem with uncertain prognosis? @ -Altered level of consciousness Drug Therapy requiring intensive monitoring for toxicity (Heparin, Nitro, Insulin, Cardizem)? @ -No Were any procedures done? @ -No Diagnosis/symptom? @ -Altered level of consciousness, hypotension, bradycardia Acute, or Chronic, or Acute on Chronic? @ -Acute Uncomplicated (without systemic symptoms) or Complicated (systemic symptoms)? @ -Complicated Side effects of treatment? @ -No Exacerbation, Progression, or Severe Exacerbation? @ -No Poses a threat to life or bodily function? How? (Chest pain, [place], RI, pneumonia, PE, COPD, DKA, ARF, appy, cholecystitis, CVA, Diverticulitis, Homicidal, Suicidal, threat to staff... and all critical care pts) @ -Hypotension with bradycardia, endorgan damage (Valdemar De Souza) Patient was presented to myself after initial workup and evaluation were initiated by GWENDOLYN. On my assessment patient is sleeping comfortably in bed. Sister and mother at bedside. They state pt has been "like this", since discharge from hospital, laying around and abusing heroin and pt's mother didn't know what to do anymore so called EMS to bring pt to the ED. Pt has hx substance abuse and was previously on methadone but has since been discharged from his methadone clinic. 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 On arrival, pt was hypotensive with MAP 61, however after recieving IV fluids and on my assessment, MAP on 70's. Pt is bradycardic with HRs 40-50s. He is breathing comfortably, no hypoxia, in NAD. He is pale and somewhat ill appearing but awakens easily. He is AOx4 without focal neurologic deficits. Pup ils 3-4 mm, equal round and reactive. He does not appear to have piloertection, tremors, nausea or vomiting and symptoms do not appear consistent with withdrawal at this point, though pt does state he thinks he is going through withdrawals. Pt endorses only heroin use to me, denies daily EtOH use, denies additional coingestants. His right hip, post surgical site is nontender, there is no swelling, surrounding erythema or discharge. I suspect symptoms are most likely 2/2 polysubstance abuse however I did direct GWENDOLYN to initiate broad spectrum antibiotics and addtional IV fluids given hypotension on arrival, ill appearance and recent hospitalization/hip surgery. Pt is stable for admission for observation. (Maria Esther Courtney) - Lab Data Lab Results 01/11/25 01/11/25 01/11/25 Range/Units 01:49 01:49 01:49 WBC 11.19 H (4.50-10.00) 10*3/uL RBC 3.67 L (4.40-5.60) 10*6/uL Hgb 10.6 L (13.0-17.0) g/dL Hct 31.2 L (39.6-50.0) % MCV 85.0 (80.0-97.0) fL MCH 28.9 (27.0-32.0) pg MCHC 34.0 (32.0-37.0) g/dL Plt Count 477 H (140-440) 10*3/uL MPV 9.9 (9.5-12.2) fL Immature Gran % (Auto) 0.2 % Neutrophils % 69.7 % Lymphocytes % 21.7 % Monocytes % 6.8 % Eosinophils % 1.3 % Basophils % 0.3 % Immature Gran # 0.02 (0.00-0.04) 10*3/uL Neutrophils # 7.80 H (1.80-7.70) 10*3/uL Lymphocytes # 2.43 (0.90-5.00) 10*3/uL Monocytes # 0.76 (0.20-1.00) 10*3/uL Eosinophils # 0.15 (0.04-0.35) 10*3/uL Basophils # 0.03 (0.00-0.10) 10*3/uL PT (10.0-12.5) sec INR (<1.2) APTT (22.0-30.0) sec Sodium 134 L (137-145) mmol/L Potassium 3.8 (3.5-5.1) mmol/L Chloride 99 (98-107) mmol/L Carbon Dioxide 28 (22-30) mmol/L Anion Gap 7 mmol/L BUN 9 (9-20) mg/dL Creatinine 0.70 (0.66-1.25) mg/dL Est GFR (CKD-EPI)AfAm >90 (>60 ml/min/1.73 sqM) Est GFR (CKD-EPI)NonAf >90 (>60 ml/min/1.73 sqM) Glucose 132 H (74-99) mg/dL POC Glucose (mg/dL) (70-110) mg/dL POC Glu Piping Design Specialist ID Plasma Lactic Acid Patrick 1.4 (0.7-2.0) mmol/L Calcium 9.5 (8.4-10.2) mg/dL Total Bilirubin 0.5 (0.2-1.3) mg/dL AST 16 L (17-59) U/L ALT 10 (4-49) U/L Alkaline Phosphatase 72 (38-126) U/L Ammonia (<30) umol/L Troponin I (0.000-0.034) ng/mL Total Protein 6.9 (6.3-8.2) g/dL Albumin 4.0 (3.5-5.0) g/dL Serum Alcohol mg/dL Influenza Type A (PCR) (Not Detectd) Influenza Type B (PCR) (Not Detectd) RSV (PCR) (Not Detectd) SARS-CoV-2 (PCR) (Not Detectd) 01/11/25 01/11/25 01/11/25 Range/Units 02:01 03:00 03:00 WBC (4.50-10.00) 10*3/uL RBC (4.40-5.60) 10*6/uL Hgb (13.0-17.0) g/dL Hct (39.6-50.0) % MCV (80.0-97.0) fL MCH (27.0-32.0) pg MCHC (32.0-37.0) g/dL Plt Count (140-440) 10*3/uL MPV (9.5-12.2) fL Immature Gran % (Auto) % Neutrophils % % Lymphocytes % % Monocytes % % Eosinophils % % Basophils % % Immature Gran # (0.00-0.04) 10*3/uL Neutrophils # (1.80-7.70) 10*3/uL Lymphocytes # (0.90-5.00) 10*3/uL Monocytes # (0.20-1.00) 10*3/uL Eosinophils # (0.04-0.35) 10*3/uL Basophils # (0.00-0.10) 10*3/uL PT (10.0-12.5) sec INR (<1.2) APTT (22.0-30.0) sec Sodium (137-145) mmol/L Potassium (3.5-5.1) mmol/L Chloride (98-107) mmol/L Carbon Dioxide (22-30) mmol/L Anion Gap mmol/L BUN (9-20) mg/dL Creatinine (0.66-1.25) mg/dL Est GFR (CKD-EPI)AfAm (>60 ml/min/1.73 sqM) Est GFR (CKD-EPI)NonAf (>60 ml/min/1.73 sqM) Glucose (74-99) mg/dL POC Glucose (mg/dL) (70-110) mg/dL POC Glu Piping Design Specialist ID Plasma Lactic Acid Patrick (0.7-2.0) mmol/L Calcium (8.4-10.2) mg/dL Total Bilirubin (0.2-1.3) mg/dL AST (17-59) U/L ALT (4-49) U/L Alkaline Phosphatase (38-126) U/L Ammonia (<30) umol/L Troponin I <0.012 (0.000-0.034) ng/mL Total Protein (6.3-8.2) g/dL Albumin (3.5-5.0) g/dL Serum Alcohol <10 mg/dL Influenza Type A (PCR) Not Detected (Not Detectd) Influenza Type B (PCR) Not Detected (Not Detectd) RSV (PCR) Not Detected (Not Detectd) SARS-CoV-2 (PCR) Not Detected (Not Detectd) 01/11/25 01/11/25 01/11/25 Range/Units 03:12 03:20 04:00 WBC (4.50-10.00) 10*3/uL RBC (4.40-5.60) 10*6/uL Hgb (13.0-17.0) g/dL Hct (39.6-50.0) % MCV (80.0-97.0) fL MCH (27.0-32.0) pg MCHC (32.0-37.0) g/dL Plt Count (140-440) 10*3/uL MPV (9.5-12.2) fL Immature Gran % (Auto) % Neutrophils % % Lymphocytes % % Monocytes % % Eosinophils % % Basophils % % Immature Gran # (0.00-0.04) 10*3/uL Neutrophils # (1.80-7.70) 10*3/uL Lymphocytes # (0.90-5.00) 10*3/uL Monocytes # (0.20-1.00) 10*3/uL Eosinophils # (0.04-0.35) 10*3/uL Basophils # (0.00-0.10) 10*3/uL PT 10.8 (10.0-12.5) sec INR 1.0 (<1.2) APTT 20.7 L (22.0-30.0) sec Sodium (137-145) mmol/L Potassium (3.5-5.1) mmol/L Chloride (98-107) mmol/L Carbon Dioxide (22-30) mmol/L Anion Gap mmol/L BUN (9-20) mg/dL Creatinine (0.66-1.25) mg/dL Est GFR (CKD-EPI)AfAm (>60 ml/min/1.73 sqM) Est GFR (CKD-EPI)NonAf (>60 ml/min/1.73 sqM) Glucose (74-99) mg/dL POC Glucose (mg/dL) 140 H (70-110) mg/dL POC Glu Piping Design Specialist ID [facility] Plasma Lactic Acid Patrick (0.7-2.0) mmol/L Calcium (8.4-10.2) mg/dL Total Bilirubin (0.2-1.3) mg/dL AST (17-59) U/L ALT (4-49) U/L Alkaline Phosphatase (38-126) U/L Ammonia 17 (<30) umol/L Troponin I (0.000-0.034) ng/mL Total Protein (6.3-8.2) g/dL Albumin (3.5-5.0) g/dL Serum Alcohol mg/dL Influenza Type A (PCR) (Not Detectd) Influenza Type B (PCR) (Not Detectd) RSV (PCR) (Not Detectd) SARS-CoV-2 (PCR) (Not Detectd) Disposition Is patient prescribed a controlled substance at d/c from ED?: No Time of Disposition: 03:50 Decision Date: 01/11/25 Decision Time: 03:50 <Valdemar De Souza - Last Filed: 01/11/25 04:12> <Maria Esther Courtney - Last Filed: 01/11/25 21:51> Clinical Impression: Altered level of consciousness, Hypotension, Bradycardia Disposition: ADMITTED IP TO THIS HOSP Condition: Stable
[2025-01-11] MEDS: SODIUM CHLORIDE 0.9% 1,000 ML IV STA ×2 (01:49→05:02)
[2025-01-11 02:15] LABS: Basophils # (A) 0.03 10*3/uL (0.00-0.10); Basophils % (A) 0.3 %; Eosinophils # (A) 0.15 10*3/uL (0.04-0.35); Eosinophils % (A) 1.3 %; HCT 31.2 % (39.6-50.0); HGB 10.6 g/dL (13.0-17.0); Lymphocytes # (A) 2.43 10*3/uL (0.90-5.00); Lymphocytes % (A) 21.7 %; MCH 28.9 pg (27.0-32.0); Mean Platelet Volume 9.9 fL (9.5-12.2); Monocytes # (A) 0.76 10*3/uL (0.20-1.00); Monocytes % (A) 6.8 %; Neutrophils % (A) 69.7 %; Platelet Count 477 10*3/uL (140-440); RBC 3.67 10*6/uL (4.40-5.60); RDW 13.3 % (11.5-14.5); WBC 11.19 10*3/uL (4.50-10.00)
[2025-01-11 02:47] LABS: Influenza A Not Detected (Not Detectd); Influenza B Not Detected (Not Detectd); RSV Not Detected (Not Detectd)
[2025-01-11 02:54] LABS: ALT 10 U/L (4-49); AST 16 U/L (17-59); African American GFR (CKD) >90 (>60 ml/min/1.73 sqM); Alkaline Phosphatase 72 U/L (38-126); Anion Gap 7 mmol/L; Blood Urea Nitrogen 9 mg/dL (9-20); Calcium 9.5 mg/dL (8.4-10.2); Carbon Dioxide 28 mmol/L (22-30); Chloride 99 mmol/L (98-107); Glucose 132 mg/dL (74-99); Non-African American GFR(CKD) >90 (>60 ml/min/1.73 sqM); Potassium 3.8 mmol/L (3.5-5.1); Sodium 134 mmol/L (137-145); Total Bilirubin 0.5 mg/dL (0.2-1.3); Total Protein 6.9 g/dL (6.3-8.2)
--- NOTE | 2025-01-11 03:05 | XR ---
EXAM: XR Chest, 2 Views CLINICAL HISTORY: ITS.REASON XR Reason: Weakness TECHNIQUE: Frontal and lateral views of the chest. COMPARISON: No relevant prior studies available. FINDINGS: Lungs: Unremarkable. No consolidation. Pleural space: Unremarkable. No pneumothorax. Heart: Unremarkable. No cardiomegaly. Mediastinum: Unremarkable. Bones/joints: Unremarkable. IMPRESSION: No consolidation.
[2025-01-11 03:14] LABS: Glucose,Whole Blood 140 mg/dL (70-110)
--- NOTE | 2025-01-11 03:39 | CT ---
EXAM: CT Head Without Intravenous Contrast CLINICAL HISTORY: ITS.REASON CT Reason: Altered mental status TECHNIQUE: Axial computed tomography images of the head/brain without intravenous contrast. CTDI is 49.1 mGy and DLP is 1304.4 mGy-cm. This CT exam was performed using one or more of the following dose reduction techniques: automated exposure control, adjustment of the mA and/or kV according to patient size, and/or use of iterative reconstruction technique. COMPARISON: No relevant prior studies available. FINDINGS: No acute intracranial hemorrhage. No midline shift or mass effect. The territorial carey-white matter differentiation is maintained throughout. The ventricles and sulci are commensurate with age. The visualized orbits appear grossly unremarkable. The calvarium is intact. The visualized paranasal sinuses and mastoid air cells are grossly clear. IMPRESSION: No acute intracranial hemorrhage, midline shift, or mass effect.
[2025-01-11] MEDS: SODIUM CHLORIDE 0.9% 1,000 ML IV ONE (03:43)
[2025-01-11] MEDS ORDERED: IBUPROFEN 400 MG TAB PO PRN (04:09)
[2025-01-11] MEDS ORDERED: ACETAMINOPHEN TAB 325 MG TAB PO PRN (04:09)
[2025-01-11] MEDS ORDERED: NALOXONE 0.4 MG/ML 1 ML VIAL IV PRN (04:09)
[2025-01-11] MEDS ORDERED: ONDANSETRON 4 MG/2 ML VIAL IVP PRN (04:09)
[2025-01-11] MEDS ORDERED: HYDROcodone/APAP 7.5-325MG 1 EACH TAB PO PRN (04:11)
[2025-01-11] MEDS ORDERED: SENNOSIDES 8.6 MG TAB PO PRN (04:11)
[2025-01-11 04:16] LABS: Prothrombin Time 10.8 sec (10.0-12.5)
[2025-01-11 04:23] LABS: Partial Thromboplastin Time 20.7 sec (22.0-30.0)
[2025-01-11] MEDS ORDERED: SODIUM CHLORIDE 0.9% 1,000 ML IV SCH (04:30)
[2025-01-11] MEDS: VANCOMYCIN 1,500 MG in SODIUM CHLORIDE 0.9% 500 ML 500 ML IVPB ONE (04:37)
[2025-01-11] MEDS: CEFEPIME 2 GM in SODIUM CHLORIDE 0.9% 100 ML IVPB STA (04:37)
[2025-01-11] MEDS: SODIUM CHLORIDE 0.9% 1,000 ML IV SCH (04:38)
[2025-01-11] MEDS ORDERED: ETODOLAC 300 MG CAPSULE PO SCH (06:00)
[2025-01-11 06:08] LABS: Appearance,Urine Clear (Clear); Bilirubin,Urine Negative (Negative); Blood,Urine Negative (Negative); Color,Urine Colorless; Glucose,Urine (UA) Negative (Negative); Ketones,Urine Negative (Negative); Leukocyte Esterase,Urine Negative (Negative); Nitrite,Urine Negative (Negative); PH, Urine 6.5 (5.0-8.0); Protein,Urine Negative (Negative); Specific Gravity,Urine 1.007 (1.001-1.035); Urobilinogen,Urine <2.0 mg/dL (<2.0)
[2025-01-11] MEDS: LORazepam 2 MG/ML INJ IV STA (06:39)
[2025-01-11 06:58] LABS: Amphetamine Screen,Urine Not Detected (NotDetected); Barbiturate Screen,Urine Not Detected (NotDetected); Benzodiazepines Screen,Urine Not Detected (NotDetected); Cocaine Screen,Urine Detected (NotDetected); Methadone Screen, Urine Not Detected (NotDetected); Opiate Screen,Urine Detected (NotDetected); Oxycodone Screen, Urine Not Detected (NotDetected); Phencyclidine Screen,Urine Not Detected (NotDetected); Tricyclic Antidepressant,Urine Not Detected (NotDetected); Urn Cannabinoid Scrn Detected (NotDetected)
[2025-01-11 07:23] VITALS: TEMP 97
[2025-01-11] MEDS: AMPHETAMINE PO SCH (08:21)
[2025-01-11] MEDS: DEXTROAMPHETAMINE PO SCH (08:21)
[2025-01-11] MEDS: ASPIRIN 325 MG TAB PO SCH (08:33)
[2025-01-11] MEDS: NICOTINE 21MG/24HR PATCH TRANSDERM STA (09:03)
[2025-01-11] MEDS ORDERED: LORazepam 1 MG/0.5 ML VIAL IV PRN (10:00)
--- NOTE | 2025-01-11 10:08 | P.HPIM ---
History of Present Illness 34-year-old male came in with complaints of right hip pain. Patient had a right hip replacement on 29 December. Patient was discharged from methadone clinic afterwards patient does have history of drug abuse and requesting [place] or Dilau did for pain. Patient is not withdrawing at this time patient pupils are equal reactive not dilated patient does not have any diaphoresis or palpitations or increased heart rate. Patient was admitted with altered mental status. Patient is alert oriented x 3 but slightly lethargic. Patient admits to using heroin 2 and half days ago and cocaine 2 and half days ago marijuana 2 weeks ago. Family apparently wanted patient to be sent to rehab clinic. REVIEW OF SYSTEMS: All other systems are negative except those mentioned in the HPI PHYSICAL EXAMINATION: GENERAL: The patient is alert and oriented x3, not in any acute distress. Well developed, well nourished. HEENT: Pupils are round and equally reacting to light. EOMI. No scleral icterus. No conjunctival pallor. Normocephalic, atraumatic. No pharyngeal erythema. No thyromegaly. CARDIOVASCULAR: S1 and S2 present. No murmurs, rubs, or gallops. PULMONARY: Chest is clear to auscultation, no wheezing or crackles. ABDOMEN: Soft, nontender, nondistended, normoactive bowel sounds. No palpable organomegaly. MUSCULOSKELETAL: No joint swelling or deformity. Right hip surgical site area clean without any infection and oriented x 3 EXTREMITIES: No cyanosis, clubbing, or pedal edema. NEUROLOGICAL: Gross neurological examination did not reveal any focal deficits. SKIN: No rashes. Assessment and plan -Altered mental status secondary to probable drug use urine drug screen is positive for cocaine and marijuana. Patient is presently alert And oriented x 3 -Opiate, heroin abuse history: Patient is currently not having withdrawals if patient has withdrawals will use Ativan, and other symptomatic treatment. If patient has diarrhea we will use Imodium. - Leukocytosis reactive without any evidence of infection cefepime and v ancomycin will be discontinued surgical site area appears to be clean. - Complaints of lightheadedness secondary to hypotension may be from dehydration patient will be started on IV fluids - Hypovolemic hyponatremia -Multiple drug abuse and nicotine use: Counseling was provided DVT prophylaxis: Patient on aspirin 325 mg twice a day for DVT prophylaxis post hip surgery which was resumed. Past Medical History Additional Past Medical History / Comment(s): kidney stones History of Any Multi-Drug Resistant Organisms: None Reported Past Surgical History: No Surgical Hx Reported Past Anesthesia/Blood Transfusion Reactions: No Reported Reaction Past Psychological History: No Psychological Hx Reported Smoking Status: Current every day smoker Past Drug Use History: None Reported - Past Family History Father Additional Family Medical History / Comment(s): kidney stones Medications and Allergies Home Medications Medication Instructions Recorded Confirmed Type Dextroamphetamine/Amphetamine 30 mg PO DAILY 03/12/24 01/11/25 History [Dextroamphetamine/Amphetamine ER 30 mg Cap] clonazePAM [KlonoPIN] 0.5 mg PO HS 12/28/24 01/11/25 History Aspirin 325 mg PO BID #60 tab 12/29/24 01/11/25 Rx Ketorolac [Toradol] 10 mg PO Q6HR #12 tab 12/29/24 01/11/25 Rx Sennosides [Senokot] 2 tab PO DAILY PRN #60 tablet 12/29/24 01/11/25 Rx HYDROcodone/APAP 7.5-325MG [[place] 1 - 2 tab PO Q6H PRN #32 tab 12/31/24 01/11/25 Rx 7.5-325] traZODone HCL 100 mg PO HS PRN 01/11/25 01/11/25 History Allergies Allergy/AdvReac Type Severity Reaction Status Date / Time codeine AdvReac Itching Verified 01/11/25 08:17 Physical Exam Vitals: Vital Signs Temp Pulse Resp BP Pulse Ox 01/11/25 09:04 80 20 116/86 96 01/11/25 08:00 36 H 01/11/25 07:22 97 F L 56 L 20 105/53 96 01/11/25 06:21 46 L 20 97/58 98 01/11/25 05:07 41 L 18 102/74 99 01/11/25 04:43 97.8 F 39 L 16 110/67 99 01/11/25 03:56 42 L 16 97/65 97 01/11/25 01:18 97.9 F 57 L 18 86/49 97 Intake and Output 01/10/25 01/11/25 01/11/25 22:59 06:59 14:59 Other: Weight 79.379 kg Results CBC & Chem 7: 01/11/25 01:49 01/11/25 01:49 Labs: Abnormal Lab Results - Last 24 Hours (Table) 01/11/25 01/11/25 01/11/25 Range/Units 01:49 01:49 03:12 WBC 11.19 H (4.50-10.00) 10*3/uL RBC 3.67 L (4.40-5.60) 10*6/uL Hgb 10.6 L (13.0-17.0) g/dL Hct 31.2 L (39.6-50.0) % Plt Count 477 H (140-440) 10*3/uL Neutrophils # 7.80 H (1.80-7.70) 10*3/uL APTT (22.0-30.0) sec Sodium 134 L (137-145) mmol/L Glucose 132 H (74-99) mg/dL POC Glucose (mg/dL) 140 H (70-110) mg/dL AST 16 L (17-59) U/L Urine Opiates Screen (NotDetected) Urine Cocaine Screen (NotDetected) U Marijuana (THC) Screen (NotDetected) 01/11/25 01/11/25 Range/Units 03:20 05:47 WBC (4.50-10.00) 10*3/uL RBC (4.40-5.60) 10*6/uL Hgb (13.0-17.0) g/dL Hct (39.6-50.0) % Plt Count (140-440) 10*3/uL Neutrophils # (1.80-7.70) 10*3/uL APTT 20.7 L (22.0-30.0) sec Sodium (137-145) mmol/L Glucose (74-99) mg/dL POC Glucose (mg/dL) (70-110) mg/dL AST (17-59) U/L Urine Opiates Screen Detected H (NotDetected) Urine Cocaine Screen Detected H (NotDetected) U Marijuana (THC) Screen Detected H (NotDetected)
[2025-01-11] MEDS: LORazepam 2 MG/ML INJ IV PRN (10:56)
[2025-01-11 11:01] VITALS: RESP 18
[2025-01-11] MEDS ORDERED: VANCOMYCIN 1,500 MG in SODIUM CHLORIDE 0.9% 500 ML 500 ML IVPB SCH (12:00)
[2025-01-11] MEDS: KETOROLAC 15 MG/ML 1 ML VIAL IVP PRN (12:46)
[2025-01-11 14:24] VITALS: BP 122/74; PULSE 91
[2025-01-11] MEDS ORDERED: clonazePAM 0.5 MG TAB PO SCH (21:00)
--- NOTE | 2025-01-12 08:54 | P.DS ---
Providers Date of admission: 01/11/25 04:12 Expected date of discharge: 01/11/25 Attending physician: Osbaldo Cooper MD Primary care physician: Maksim Gabriel [facility] Course: Final diagnosis Assessment and plan -Altered mental status secondary to probable drug use urine drug screen is positive for cocaine and marijuana. Patient is presently alert And oriented x 3 -Opiate, heroin abuse history: Patient is currently not having withdrawals if patient has withdrawals will use Ativan, and other symptomatic treatment. If patient has diarrhea we will use Imodium. - Leukocytosis reactive without any evidence of infection cefepime and vancomycin will be discontinued surgical site area appears to be clean. - Complaints of lightheadedness secondary to hypotension may be from dehydration patient will be started on IV fluids - Hypovolemic hyponatremia -Multiple drug abuse and nicotine use: Counseling was provided DVT prophylaxis: Patient on aspirin 325 mg twice a day for DVT prophylaxis post hip surgery which was resumed. Discharge disposition Patient left AGAINST MEDICAL ADVICE. Risk versus benefits including were explained and patient proceeded to leave. Please refer to nursing documentation. Total time taken less than 35 minutes Hospital course 34-year-old male came in with complaints of right hip pain. Patient had a right hip replacement on 29 December. Patient was discharged from methadone clinic afterwards patient does have history of drug abuse and requesting [place] or Dilaudid for pain. Patient is not withdrawing at this time patient pupils are equal reactive not dilated patient does not have any diaphoresis or palpitations or increased heart rate. Patient was admitted with altered mental status. Patient is alert oriented x 3 but slightly lethargic. Patient admits to using heroin 2 and half days ago and cocaine 2 and half days ago marijuana 2 weeks ago. Family apparently wanted patient to be sent to rehab clinic. 01/11/2025 Risk versus benefits were explained with the patient and nursing staff and proceeded to leave AGAINST MEDICAL ADVICE. The impression and plan of care has been dictated by Lisa Buck, Nurse Practitioner as directed. Dr. Abilio MD I have performed a history and examination and MDM of this patient, discussed the same with the dictator, and agree with the dictator's assessment and plan as written ,documented as a scribe. Based on total visit time, I have performed more than 50% of the visit. Patient Condition at Discharge: Undetermined Plan - Discharge Summary New Discharge Prescriptions: No Action clonazePAM [KlonoPIN] 0.5 mg PO HS Aspirin 325 mg PO BID #60 tab HYDROcodone/APAP 7.5-325MG [[place] 7.5-325] 1 - 2 tab PO Q6H PRN #32 tab PRN Reason: Pain traZODone HCL 100 mg PO HS PRN PRN Reason: sleep Dextroamphetamine/Amphetamine [Dextroamphetamine/Amphetamine ER 30 mg Cap] 30 mg PO DAILY Sennosides [Senokot] 2 tab PO DAILY PRN #60 tablet PRN Reason: Constipation Ketorolac [Toradol] 10 mg PO Q6HR #12 tab Discharge Medication List Dextroamphetamine/Amphetamine [Dextroamphetamine/Amphetamine ER 30 mg Cap] 30 mg PO DAILY 03/12/24 [History] clonazePAM [KlonoPIN] 0.5 mg PO HS 12/28/24 [History] Aspirin 325 mg PO BID #60 tab 12/29/24 [Rx] Ketorolac [Toradol] 10 mg PO Q6HR #12 tab 12/29/24 [Rx] Sennosides [Senokot] 2 tab PO DAILY PRN #60 tablet 12/29/24 [Rx] HYDROcodone/APAP 7.5-325MG [[place] 7.5-325] 1 - 2 tab PO Q6H PRN #32 tab 12/31/24 [Rx] traZODone HCL 100 mg PO HS PRN 01/11/25 [History] Follow up Appointment(s)/Referral(s): Maksim Gabriel DO [Primary Care Provider] - 1-2 days Discharge Disposition: LEFT AGAINST MEDICAL ADVICE
== END 2025-01-11 14:25 | disposition left against medical advice (07) ==
LOC: EC 01:16 → 6NMEDSUR 04:12 → 3SCARD 05:01 → 5NMEDONC 10:17
PROVIDERS: ADMIT Internal Medicine; ATTEND Internal Medicine
DX: R41.82 Altered mental status, unspecified (principal); I95.9 Hypotension, unspecified; E86.1 Hypovolemia; E87.1 Hypo-osmolality and hyponatremia; E86.0 Dehydration; F11.20 Opioid dependence, uncomplicated; F14.10 Cocaine abuse, uncomplicated; F12.90 Cannabis use, unspecified, uncomplicated; R19.7 Diarrhea, unspecified; R00.1 Bradycardia, unspecified; D72.829 Elevated white blood cell count, unspecified; R73.9 Hyperglycemia, unspecified; M25.551 Pain in right hip; Z96.641 Presence of right artificial hip joint; F17.200 Nicotine dependence, unspecified, uncomplicated; Z79.82 Long term (current) use of aspirin; Z79.899 Other long term (current) drug therapy; Z88.5 Allergy status to narcotic agent; Z11.52 Encounter for screening for COVID-19; Z11.59 Encounter for screening for other viral diseases; Z71.51 Drug abuse counseling and surveillance of drug abuser; Z71.6 Tobacco abuse counseling; Z53.29 Procedure and treatment not carried out because of patient's decision for other reasons
CPT/HCPCS: 96376; 96368; 96361; 96365; 96366; 96375; 99285; 36415; 93005; 80053; 82140; 83605; 84484; 85025; 85610; 85730; 81003; 80306; 87636; 71046; 70450; G0378 ×3; G0480; S4990; J3370; J2060; J0692; J1885; 80320